=== PATIENT | female | born 1975 | race Caucasian/White ===

== ENCOUNTER 2016-12-08 11:19 | Emergency (ER) | payer BC ==
[~2016-12-08] VITALS: Ht 165.1 cm; Wt 80.0 kg
[2016-12-08 11:40] VITALS: BP 130/74; PULSE 81; RESP 16; TEMP 97.9; O2SAT 98
[2016-12-08 12:23] LABS: AUTOMATED NEUTROPHIL # 9.1 TH/MM3 (1.8-7.7); BASOPHIL % 0.3 % (0.0-2.0); EOSINOPHIL % 0.1 % (0.0-4.0); HEMO FLAGS DIFF FINAL; LYMPH % 14.2 % (9.0-44.0); LYMPHOCYTE # 1.6 TH/MM3 (1.0-4.8); MEAN CELL VOLUME 89.6 FL (80.0-100.0); MEAN CORPUSCULAR HEMOGLOBIN 30.4 PG (27.0-34.0); MEAN CORPUSCULAR HGB CONC 33.9 % (32.0-36.0); MONO % 6.5 % (0.0-8.0); NEUT % 78.9 % (16.0-70.0); PLATELET COUNT 312 TH/MM3 (150-450); RED BLOOD COUNT 4.46 MIL/MM3 (4.00-5.30); RED CELL DISTRIBUTION WIDTH 12.5 % (11.6-17.2); WHITE BLOOD COUNT 11.6 TH/MM3 (4.0-11.0)
[2016-12-08] MEDS ORDERED: SODIUM CHLOR 0.9% 1000 ML INJ 1,000 ML IV SCH ×2 (12:32→13:42)
--- NOTE | 2016-12-08 12:35 | PD ---
HPI Chief Complaint: GI Complaint Time Seen by Provider: 12:33 Travel History International Travel<30 days: No Contact w/Intl Traveler<30days: No Traveled to known affect area: No History of Present Illness HPI 41-year-old female presents to the emergency department for evaluation of nausea and vomiting for 5 days. The patient states that she is approximately 4 weeks , first day of her last menstrual cycle 10/24/16. States that she was given Phenergan by her PCP Dr. Hurt earlier this week and took it 3 times however the last time she took it she vomited despite taking the medication. States that she's been unable to keep down any food or fluids over the last several days. She denies any abdominal pain, vaginal bleeding, vaginal spotting, vaginal discharge, burning with urination, painful urination, hematuria, fever, chills, cough or cold symptoms. No other complaints. PFSH Past Medical History Medical History: Denies Significant Hx Diminished Hearing: No Tetanus Vaccination: < 5 Years Influenza Vaccination: No ?: LMP: 10/24/16 : 2 Para: 1 Past Surgical History Surgical History: No Previous Surgery Social History Alcohol Use: No Tobacco Use: No Substance Use: No Allergies-Medications (Allergen,Severity, Reaction): Coded Allergies: No Known Allergies (Unverified , 12/08/16) Reported Meds & Prescriptions Reported Meds & Active Scripts Active No Active Prescriptions or Reported Medications Review of Systems Except as stated in HPI: all other systems reviewed are Neg Physical Exam Narrative GENERAL: Well-nourished and well-developed pleasant patient in no acute distress who is nontoxic appearing. SKIN: Warm and dry. HEAD: Normocephalic and atraumatic. EYES: No injection, drainage, or hyphema noted. PERRLA. EOMI. ENT: No nasal drainage noted. Oropharynx is clear. NECK: Supple and the trachea is midline. CARDIOVASCULAR: Regular rate and rhythm. RESPIRATORY: Breath sounds are equal bilaterally with no accessory muscle use, wheezing, rhonchi, or crackles. GASTROINTESTINAL: Abdomen is soft, non-tender, and nondistended. MUSCULOSKELETAL: No obvious deformities, swelling, cyanosis, or ecchymosis is present throughout the upper and lower extremities. Patient has full range of motion without any signs of neurovascular compromise. NEUROLOGICAL: Awake, alert, and oriented. Normal speech and gait. Cranial nerves are grossly intact. Data Data Last Documented VS Vital Signs Date Time Temp Pulse Resp B/P Pulse Ox O2 Delivery O2 Flow Rate FiO2 12/08/16 15:41 85 16 105/57 98 Room Air 12/08/16 11:40 97.9 Orders Complete Blood Count With Diff (12/08/16 11:42) Basic Metabolic Panel (Bmp) (12/08/16 11:42) Urinalysis - C+S If Indicated (12/08/16 11:42) Ed Urine Pregnancytest Poc (12/08/16 11:42) Hepatic Functional Panel (12/08/16 12:18) Lipase (12/08/16 12:18) Ondansetron Inj (Zofran Inj) (12/08/16 12:45) Sodium Chlor 0.9% 1000 Ml Inj (Ns 1000 M (12/08/16 12:32) Sodium Chloride 0.9% Flush (Ns Flush) (12/08/16 12:45) Beta Hcg (Quant/Titer) (12/08/16 12:35) Urine Culture (12/08/16 13:42) Sodium Chlor 0.9% 1000 Ml Inj (Ns 1000 M (12/08/16 13:42) Potassium Chloride Eff (K-Lyte Cl Eff) (12/08/16 13:45) Ondansetron Inj (Zofran Inj) (12/08/16 14:15) Metoclopramide Inj (Reglan Inj) (12/08/16 15:45) Labs Laboratory Tests Test 12/08/16 11:50 White Blood Count 11.6 TH/MM3 Red Blood Count 4.46 MIL/MM3 Hemoglobin 13.5 GM/DL Hematocrit 40.0 % Mean Corpuscular Volume 89.6 FL Mean Corpuscular Hemoglobin 30.4 PG Mean Corpuscular Hemoglobin 33.9 % Concent Red Cell Distribution Width 12.5 % Platelet Count 312 TH/MM3 Mean Platelet Volume 7.9 FL Neutrophils (%) (Auto) 78.9 % Lymphocytes (%) (Auto) 14.2 % Monocytes (%) (Auto) 6.5 % Eosinophils (%) (Auto) 0.1 % Basophils (%) (Auto) 0.3 % Neutrophils # (Auto) 9.1 TH/MM3 Lymphocytes # (Auto) 1.6 TH/MM3 Monocytes # (Auto) 0.8 TH/MM3 Eosinophils # (Auto) 0.0 TH/MM3 Basophils # (Auto) 0.0 TH/MM3 CBC Comment DIFF FINAL Differential Comment Urine Color YELLOW Urine Turbidity HAZY Urine pH 6.0 Urine Specific [place] 1.030 Urine Protein 30 mg/dL Urine Glucose (UA) NEG mg/dL Urine Ketones 150 mg/dL Urine Occult Blood NEG Urine Nitrite NEG Urine Bilirubin SMALL Urine Urobilinogen 4.0 MG/DL Urine Leukocyte Esterase NEG Urine RBC 1 /hpf Urine WBC 6 /hpf Urine Squamous Epithelial 4 /hpf Cells Urine Transitional Epithelial <1 /hpf Cells Urine Bacteria FEW /hpf Urine Hyaline Casts 5 /lpf Urine Mucus MANY /lpf Microscopic Urinalysis Comment CULT NOT INDICATED Sodium Level 134 MEQ/L Potassium Level 3.4 MEQ/L Chloride Level 101 MEQ/L Carbon Dioxide Level 19.6 MEQ/L Anion Gap 13 MEQ/L Blood Urea Nitrogen 14 MG/DL Creatinine 0.77 MG/DL Estimat Glomerular Filtration 82 ML/MIN Rate Random Glucose 78 MG/DL Calcium Level 8.9 MG/DL Total Bilirubin 0.8 MG/DL Direct Bilirubin 0.2 MG/DL Indirect Bilirubin 0.6 MG/DL Aspartate Amino Transf 26 U/L (AST/SGOT) Alanine Aminotransferase 33 U/L (ALT/SGPT) Alkaline Phosphatase 66 U/L Total Protein 8.5 GM/DL Albumin 4.4 GM/DL Lipase 206 U/L Human Chorionic Gonadotropin, 79415 MIU/ML Quant MDM Medical Decision Making Medical Screen Exam Complete: Yes Emergency Medical Condition: Yes Differential Diagnosis Dehydration versus electrolyte abnormality versus UTI versus early Narrative Course 41-year-old female presents to the emergency department for evaluation of nausea and vomiting for 5 days in early . Patient is afebrile, vital signs are stable. Physical examination is unremarkable. Abdominal examination is benign. IV access was obtained, labs are drawn and sent. Patient is placed on cardiac telemetry and pulse oximetry monitoring. Patient is administered IV fluids and Zofran. CBC shows slightly elevated white blood cell count of 11.6, otherwise unremarkable. CMP shows sodium 134 and mild hypokalemia 3.4 Beta hcg shows 51,322. Urinalysis shows 30 protein, 150 ketones, small bilirubin, 4.0 urobilinogen, 6 white blood cells, few bacteria, many mucus. Patient has her in stable while here in the emergency department. She has not had any episodes of emesis. She has had some nausea and therefore was given a dose of Reglan. She has some bacteria in her urine and will be discharged with Macrobid. She'll be discharged with Reglan for nausea and vomiting. Discussed with the patient that should she develop any worsening of symptoms or if she is vomiting despite taking antiemetics that she should return immediately to the emergency department. Patient verbalizes understanding and agreement with treatment plan. I discussed the case with my attending physician Dr. Jarvis who is aware of the patients history, physical examination findings, and treatment plan. Diagnosis Primary Impression: Nausea and vomiting during Additional Impressions: Bacteria in urine Mild dehydration Referrals: Manufacturing Design Engineer Patient Instructions: General Instructions, Nausea and Vomiting in ( ED) Additional Instructions: Take medications as prescribed. Follow-up with an OBGYN. Return to the ED for any acute worsening of symptoms. Med/Other Pt SpecificInfo: Prescription(s) given Scripts Metoclopramide (Reglan)10 Mg Tab10 Mg PO TIDAC 7 Days Ref 0 Prov:Wanda Jarvis DO 12/08/16 Disposition: 01 DISCHARGE HOME Condition: Stable Anju Logan Dec 08, 2016 12:34
[2016-12-08 12:44] LABS: BICARBONATE 19.6 MEQ/L (21.0-32.0); POTASSIUM 3.4 MEQ/L (3.5-5.1)
[2016-12-08 12:45] LABS: INDIRECT BILIRUBIN 0.6 MG/DL (0.0-0.8); TOTAL BILIRUBIN ADULT 0.8 MG/DL (0.2-1.0)
[2016-12-08] MEDS ORDERED: SODIUM CHLORIDE 0.9% FLUSH 10 ML FLUSH IV FLUSH PRN (12:45)
[2016-12-08] MEDS ORDERED: ONDANSETRON HCL 4 MG/2 ML VIAL IVP ONE (12:45)
[2016-12-08 12:50] LABS: BACTERIA, URINE FEW /hpf; BLOOD, URINE NEG (NEG); COMMENT (UR) CULT NOT INDICATED; CULTURE IF INDICATED CULT NOT INDICATED; GLUCOSE,URINE NEG (NEG); HYALINE CAST, URINE 5 /lpf (RARE); KETONE, URINE 150 mg/dL (NEG); MUCUS URINE MANY /lpf (OCC); NITRITE,URINE NEG (NEG); SQUAMOUS EPITHELIAL CELL URINE 4 /hpf (0-5); TRANSITIONAL EPI CELLS, URINE <1 /hpf; URINE COLOR YELLOW (YELLW/STRAW)
[2016-12-08 13:06] LABS: BETA HCG QUANT 51322 MIU/ML (0-5)
[2016-12-08] MEDS ORDERED: POTASSIUM CHLORIDE 25 MEQ EFFERVESCENT TAB PO ONE (13:45)
[2016-12-08] MEDS ORDERED: ONDANSETRON HCL 4 MG/2 ML VIAL IV PUSH ONE (14:15)
[2016-12-08 15:41] VITALS: BP 105/57; PULSE 85; RESP 16; O2SAT 98
[2016-12-08] MEDS ORDERED: METOCLOPRAMIDE HCL 10 MG/2 ML VIAL IV PUSH ONE (15:45)
[2016-12-08] MEDS ORDERED: REGL10TA5 PO (16:00)
[2016-12-08] MEDS ORDERED: MACR100C2 PO (16:06)
== END 2016-12-08 16:33 | disposition home or self-care (01) ==
LOC: NEPD 11:19
DX: O21.9 Vomiting of pregnancy, unspecified (principal); Z3A.01 Less than 8 weeks gestation of pregnancy; E86.0 Dehydration; R82.71 Bacteriuria
CPT/HCPCS: 80048; 80076; 81001; 83690; 84702; 84703; 85025; 87086; 96361; 96374; 96375; 99284; J2405; J2765; J7030

== ENCOUNTER 2016-12-10 12:42 | Emergency (ER) | payer BC ==
[~2016-12-10] VITALS: Ht 165.1 cm; Wt 80.0 kg
[~2016-12-10 12:42] MED LIST: MACR100C2 PO; REGL10TA5 PO
[2016-12-10 12:44] VITALS: BP 130/79; PULSE 98; RESP 20; TEMP 98.6; O2SAT 98
--- NOTE | 2016-12-10 12:49 | PD ---
Physical Exam Time Seen by Provider: 12:47 Narrative 41 y/o female 7 weeks gestational age here for evaluation of persistent n/v. Seen 2 days ago for similar complaint, symptoms persistent. Given reglan with no improvement. Vital signs reviewed. Seen at triage desk. Awaiting bed placement. Data Data Last Documented VS Vital Signs Date Time Temp Pulse Resp B/P Pulse Ox O2 Delivery O2 Flow Rate FiO2 12/10/16 12:44 98.6 98 20 130/79 98 Room Air [facility] Medical Record Reviewed: Yes Supervised Visit with ANH: Gee Hernandez Dec 10, 2016 12:49
[2016-12-10] MEDS ORDERED: SODIUM CHLOR 0.9% 1000 ML INJ 1,000 ML IV SCH (13:41)
[2016-12-10] MEDS ORDERED: ONDANSETRON HCL 4 MG/2 ML VIAL IVP ONE (13:45)
[2016-12-10] MEDS ORDERED: SODIUM CHLOR 0.9% 1000 ML INJ 1,000 ML IV ONE (13:45)
[2016-12-10] MEDS ORDERED: DOXY10TA PO (14:08)
[2016-12-10] MEDS ORDERED: PROM1SUP8 RECTAL (14:08)
--- NOTE | 2016-12-10 14:09 | PD ---
HPI Chief Complaint: Related Problem Time Seen by Provider: 13:27 Travel History International Travel<30 days: No Contact w/Intl Traveler<30days: No Traveled to known affect area: No History of Present Illness HPI Patient is a 41-year-old female who presents to emergency room complaints of nausea with . Patient reports that she is about 7 weeks with her second child, reports that her , she has been feeling nauseous. Reports that she is very sensitive to smells, patient reports that she is unable to keep any foods or fluids down. Reports that she was seen in the ER a few days ago and was given a scrip for reglan which has not helped with her symptoms. Reports that she has also tried taking phenergen with no relief of symptoms. Patient denies abdominal pain/cramping. Denies vaginal discharge/ bleeding. PFSH Past Medical History Medical History: Denies Significant Hx Diminished Hearing: No ?: : 2 Para: 1 Past Surgical History Surgical History: No Previous Surgery Social History Alcohol Use: No Tobacco Use: No Substance Use: No Allergies-Medications (Allergen,Severity, Reaction): Coded Allergies: No Known Allergies (Unverified , 12/10/16) Reported Meds & Prescriptions Reported Meds & Active Scripts Active Phenergan Supp (Promethazine HCl) 50 Mg Supp 50 Mg RECTAL Q6H PRN Diclegis (Doxylamine-Pyridoxine) 10-10 Mg Tab 10 Mg PO BID PRN Macrobid (Nitrofurantoin Monoh/Nitrofur Macro) 100 Mg Cap 100 Mg PO BID 10 Days Reglan (Metoclopramide HCl) 10 Mg Tab 10 Mg PO TIDAC 7 Days Review of Systems General / Constitutional: No: Fever Eyes: No: Visual changes HENT: No: Headaches Cardiovascular: No: Chest Pain or Discomfort Respiratory: No: Shortness of Breath Gastrointestinal: Positive: Nausea, Vomiting, No: Abdominal Pain Genitourinary: No: Urgency, Frequency, Dysuria Musculoskeletal: No: Pain Skin: No Rash Neurologic: No: Weakness Psychiatric: No: Depression Endocrine: No: Polydipsia Hematologic/Lymphatic: No: Easy Bruising Physical Exam Narrative GENERAL: Mild distress SKIN: Focused skin assessment warm/dry. HEAD: Atraumatic. Normocephalic. EYES: Pupils equal and round. No scleral icterus. No injection or drainage. ENT: No nasal bleeding or discharge. Mucous membranes pink and moist. NECK: Trachea midline. No JVD. CARDIOVASCULAR: Regular rate and rhythm. No murmur appreciated. RESPIRATORY: No accessory muscle use. Clear to auscultation. Breath sounds equal bilaterally. GASTROINTESTINAL: Abdomen soft, non-tender, nondistended. Hepatic and splenic margins not palpable. MUSCULOSKELETAL: No obvious deformities. No clubbing. No cyanosis. No edema. NEUROLOGICAL: Awake and alert. No obvious cranial nerve deficits. Motor grossly within normal limits. Normal speech. PSYCHIATRIC: Appropriate mood and affect; insight and judgment normal. Data Data Last Documented VS Vital Signs Date Time Temp Pulse Resp B/P Pulse Ox O2 Delivery O2 Flow Rate FiO2 12/10/16 12:44 98.6 98 20 130/79 98 Room Air Orders Basic Metabolic Panel (Bmp) (12/10/16 13:41) Urinalysis - C+S If Indicated (12/10/16 13:41) Iv Access Insert/Monitor (12/10/16 13:41) Ondansetron Inj (Zofran Inj) (12/10/16 13:45) Sodium Chlor 0.9% 1000 Ml Inj (Ns 1000 M (12/10/16 13:41) Sodium Chloride 0.9% Flush (Ns Flush) (12/10/16 13:45) Sodium Chlor 0.9% 1000 Ml Inj (Ns 1000 M (12/10/16 13:45) Ondansetron Inj (Zofran Inj) (12/10/16 15:45) Promethazine Supp (Phenergan Supp) (12/10/16 15:45) Labs Laboratory Tests Test 12/10/16 12/10/16 14:00 15:40 Sodium Level 136 MEQ/L Potassium Level 3.6 MEQ/L Chloride Level 103 MEQ/L Carbon Dioxide Level 20.3 MEQ/L Anion Gap 13 MEQ/L Blood Urea Nitrogen 6 MG/DL Creatinine 0.68 MG/DL Estimat Glomerular Filtration 95 ML/MIN Rate Random Glucose 71 MG/DL Calcium Level 9.1 MG/DL Urine Color DARK-YELLOW Urine Turbidity HAZY Urine pH 6.0 Urine Specific [place] 1.023 Urine Protein 30 mg/dL Urine Glucose (UA) NEG mg/dL Urine Ketones 150 mg/dL Urine Occult Blood NEG Urine Nitrite NEG Urine Bilirubin NEG Urine Urobilinogen 2.0 MG/DL Urine Leukocyte Esterase MOD Urine RBC 1 /hpf Urine WBC 7 /hpf Urine Squamous Epithelial 16 /hpf Cells Urine Bacteria FEW /hpf Urine Hyaline Casts 1 /lpf Urine Mucus FEW /lpf Microscopic Urinalysis Comment CULT NOT INDICATED MDM Medical Decision Making Medical Screen Exam Complete: Yes Emergency Medical Condition: Yes Interpretation(s) Vital Signs Date Time Temp Pulse Resp B/P Pulse Ox O2 Delivery O2 Flow Rate FiO2 12/10/16 12:44 98.6 98 20 130/79 98 Room Air Differential Diagnosis Differential includes nausea and vomiting with , electrolyte abnormality, dehydration Narrative Course 41-year-old female who presents to emergency room with complaints of nausea vomiting during . Reports that this is her second , reports that she has had issues with nausea and vomiting during her first . Patient has tried phenergen and reglan with no relief of symptoms. Patient here for iv hydration and for antiemetics. She does have an appointment with Dr. Sommers in the upcoming weeks. Vital Signs Date Time Temp Pulse Resp B/P Pulse Ox O2 Delivery O2 Flow Rate FiO2 12/10/16 12:44 98.6 98 20 130/79 98 Room Air Laboratory Tests Test 12/10/16 14:00 Sodium Level 136 MEQ/L (136-145) Potassium Level 3.6 MEQ/L (3.5-5.1) Chloride Level 103 MEQ/L (98-107) Carbon Dioxide Level 20.3 MEQ/L (21.0-32.0) Anion Gap 13 MEQ/L (5-15) Blood Urea Nitrogen 6 MG/DL (7-18) Creatinine 0.68 MG/DL (0.50-1.00) Estimat Glomerular Filtration 95 ML/MIN (>89) Rate Random Glucose 71 MG/DL (74-106) Calcium Level 9.1 MG/DL (8.5-10.1) Patient feeling much better at this time. Labs reviewed - UA pending Diagnosis Primary Impression: Nausea and vomiting during Patient Instructions: General Instructions Additional Instructions: Please follow up with your tire builder operator as soon as possible Return to ER as needed Med/Other Pt SpecificInfo: Prescription(s) given Scripts Ondansetron (Zofran)4 Mg Tab4 Mg PO Q6HR PRN (NAUSEA OR VOMITING) #20 TAB Ref 0 Prov:Wanda Jarvis DO 12/10/16 Promethazine Supp (Phenergan Supp)50 Mg Supp50 Mg RECTAL Q6H PRN (NAUSEA OR VOMITING) #30 SUPP Ref 0 Prov:Wanda Jarvis DO 12/10/16 Doxylamine-Pyridoxine (Diclegis)10-10 Mg Tab10 Mg PO BID PRN (NAUSEA) #60 Prov:Wanda Jarvis DO 12/10/16 Disposition: 01 DISCHARGE HOME Condition: Stable Wanda Jarvis DO Dec 10, 2016 14:09
[2016-12-10] MEDS: SODIUM CHLORIDE 0.9% FLUSH 10 ML FLUSH IV FLUSH PRN ×3 (15:00→16:17)
[2016-12-10 15:09] LABS: BICARBONATE 20.3 MEQ/L (21.0-32.0)
[2016-12-10 15:10] LABS: POTASSIUM 3.6 MEQ/L (3.5-5.1)
[2016-12-10] MEDS ORDERED: ONDANSETRON HCL 4 MG/2 ML VIAL IV PUSH ONE (15:45)
[2016-12-10] MEDS ORDERED: PROMETHAZINE HCL 25 MG SUPP RECTAL ONE (15:45)
[2016-12-10 16:10] LABS: BACTERIA, URINE FEW /hpf; BLOOD, URINE NEG (NEG); COMMENT (UR) CULT NOT INDICATED; CULTURE IF INDICATED CULT NOT INDICATED; GLUCOSE,URINE NEG (NEG); HYALINE CAST, URINE 1 /lpf (RARE); KETONE, URINE 150 mg/dL (NEG); MUCUS URINE FEW /lpf (OCC); NITRITE,URINE NEG (NEG); SQUAMOUS EPITHELIAL CELL URINE 16 /hpf (0-5); URINE COLOR DARK-YELLOW (YELLW/STRAW)
[2016-12-10] MEDS ORDERED: ZOFR4TAB PO (16:30)
== END 2016-12-10 17:03 | disposition home or self-care (01) ==
LOC: NEPD 12:42
DX: O21.9 Vomiting of pregnancy, unspecified (principal); Z79.899 Other long term (current) drug therapy
CPT/HCPCS: 80048; 81001; 96361; 96374; 96376; 99284; J2405; J7030

== ENCOUNTER 2016-12-17 15:03 | Observation (INO) | payer BC ==
[~2016-12-17] VITALS: Ht 165.1 cm; Wt 75.2 kg
[~2016-12-17 15:03] MED LIST changes: +DOXY10TA PO; +PROM1SUP8 RECTAL; +ZOFR4TAB PO
[2016-12-17 15:11] VITALS: BP 138/84; PULSE 85; RESP 16; TEMP 98.2; O2SAT 99
--- NOTE | 2016-12-17 17:42 | PD ---
HPI Chief Complaint: GI Complaint Time Seen by Provider: 17:37 Travel History International Travel<30 days: No Contact w/Intl Traveler<30days: No Traveled to known affect area: No History of Present Illness HPI PATIENT IS 8 WEEKS , PATIENT HAS BEEN HERE ON December AND TODAY FOR SAME COMPLAINT...PREVIOUSLY BMP WAS WNL, BUT NO LFT'S , UA NOTED SOME MILD UTI VS STERILE PYURIA GIVEN MACROBID, PATIENT HAS BEEN PLACED ON REGLAN AND PHENERGAN PREVIOUSLY AND FINALLY LAST VISIT GIVEN ZOFRAN...NOW PATIENT RETURNS C /O "DEHYDRATED FROM ALL THE VOMITING" [facility] Past Medical History Diminished Hearing: No Influenza Vaccination: Yes ?: LMP: 8 WEEKS : 2 Para: 1 Past Surgical History Surgical History: No Previous Surgery Family History Family Hypercholesterolemia: Yes Social History Alcohol Use: No Tobacco Use: No Substance Use: No Allergies-Medications (Allergen,Severity, Reaction): Coded Allergies: No Known Allergies (Unverified , 12/17/16) Reported Meds & Prescriptions Reported Meds & Active Scripts Active Review of Systems Except as stated in HPI: all other systems reviewed are Neg Gastrointestinal: Positive: Nausea, Vomiting Physical Exam Narrative GENERAL: SKIN: Warm and dry. HEAD: Atraumatic. Normocephalic. EYES: Pupils equal and round. No scleral icterus. No injection or drainage. ENT: No nasal bleeding or discharge. Mucous membranes pink and moist. NECK: Trachea midline. No JVD. CARDIOVASCULAR: Regular rate and rhythm. RESPIRATORY: No accessory muscle use. Clear to auscultation. Breath sounds equal bilaterally. GASTROINTESTINAL: Abdomen soft, non-tender, nondistended. Hepatic and splenic margins not palpable. MUSCULOSKELETAL: Extremities without clubbing, cyanosis, or edema. No obvious deformities. NEUROLOGICAL: Awake and alert. No obvious cranial nerve deficits. Motor grossly within normal limits. Five out of 5 muscle strength in the arms and legs. Normal speech. PSYCHIATRIC: Appropriate mood and affect; insight and judgment normal. Data Data Last Documented VS Vital Signs Date Time Temp Pulse Resp B/P Pulse Ox O2 Delivery O2 Flow Rate FiO2 12/17/16 15:11 98.2 85 16 138/84 99 Orders Complete Blood Count With Diff (12/17/16 17:42) Comprehensive Metabolic Panel (12/17/16 17:42) Lipase (12/17/16 17:42) Beta Hcg (Quant/Titer) (12/17/16 17:42) Iv Access Insert/Monitor (12/17/16 17:42) Sodium Chlor 0.9% 1000 Ml Inj (Ns 1000 M (12/17/16 17:45) Ondansetron Inj (Zofran Inj) (12/17/16 17:45) Promethazine Inj (Phenergan Inj) (12/17/16 18:00) Admit Order (Ed Use Only) (12/17/16 19:11) Labs Laboratory Tests Test 12/17/16 18:15 White Blood Count 10.3 TH/MM3 Red Blood Count 4.49 MIL/MM3 Hemoglobin 14.1 GM/DL Hematocrit 39.8 % Mean Corpuscular Volume 88.7 FL Mean Corpuscular Hemoglobin 31.4 PG Mean Corpuscular Hemoglobin 35.5 % Concent Red Cell Distribution Width 12.2 % Platelet Count 272 TH/MM3 Mean Platelet Volume 9.0 FL Neutrophils (%) (Auto) 75.6 % Lymphocytes (%) (Auto) 16.8 % Monocytes (%) (Auto) 6.9 % Eosinophils (%) (Auto) 0.0 % Basophils (%) (Auto) 0.7 % Neutrophils # (Auto) 7.8 TH/MM3 Lymphocytes # (Auto) 1.7 TH/MM3 Monocytes # (Auto) 0.7 TH/MM3 Eosinophils # (Auto) 0.0 TH/MM3 Basophils # (Auto) 0.1 TH/MM3 CBC Comment DIFF FINAL Differential Comment Sodium Level 134 MEQ/L Potassium Level 2.8 MEQ/L Chloride Level 97 MEQ/L Carbon Dioxide Level 25.2 MEQ/L Anion Gap 12 MEQ/L Blood Urea Nitrogen 10 MG/DL Creatinine 0.73 MG/DL Estimat Glomerular Filtration 87 ML/MIN Rate Random Glucose 85 MG/DL Calcium Level 9.2 MG/DL Total Bilirubin 0.7 MG/DL Aspartate Amino Transf 34 U/L (AST/SGOT) Alanine Aminotransferase 48 U/L (ALT/SGPT) Alkaline Phosphatase 59 U/L Total Protein 8.2 GM/DL Albumin 4.0 GM/DL Lipase 273 U/L Human Chorionic Gonadotropin, [id number] MIU/ML Quant MDM Medical Decision Making Medical Screen Exam Complete: Yes Emergency Medical Condition: Yes Medical Record Reviewed: Yes Differential Diagnosis HYPEREMESIS GRAVIDARUM V HELLP V DEHYDRATION V ELECTROLYTE ABNL Narrative Course PATIENT EVLAUATED AND WITHOUT ANEMIA OR LEUKOCYTOSIS, HOWEVER, FOUND TO BE DEHYDRATED AND HYPOKALEMIC FOR WHICH WILL BE ADMITTED OBS UNDER DR CANO. Diagnosis Primary Impression: HYPEREMESIS GRAVIDARUM Additional Impressions: ACUTE HYPOKALEMIA DEHYDRATION Admitting Information Admitting Physician Requests: Observation Samy Ferraro MD Dec 17, 2016 17:42
[2016-12-17] MEDS ORDERED: ONDANSETRON HCL 4 MG/2 ML VIAL IV PUSH ONE (17:45)
[2016-12-17] MEDS ORDERED: SODIUM CHLOR 0.9% 1000 ML INJ 1,000 ML IV ONE (17:45)
[2016-12-17] MEDS ORDERED: PROMETHAZINE INJ 25 MG/ML VIAL IM ONE (18:00)
[2016-12-17 18:53] LABS: AUTOMATED NEUTROPHIL # 7.8 TH/MM3 (1.8-7.7); BASOPHIL # 0.1 TH/MM3 (0-0.2); BASOPHIL % 0.7 % (0.0-2.0); HEMATOCRIT 39.8 % (35.0-46.0); HEMO FLAGS DIFF FINAL; LYMPH % 16.8 % (9.0-44.0); LYMPHOCYTE # 1.7 TH/MM3 (1.0-4.8); MEAN CELL VOLUME 88.7 FL (80.0-100.0); MEAN CORPUSCULAR HEMOGLOBIN 31.4 PG (27.0-34.0); MEAN CORPUSCULAR HGB CONC 35.5 % (32.0-36.0); MONO % 6.9 % (0.0-8.0); NEUT % 75.6 % (16.0-70.0); PLATELET COUNT 272 TH/MM3 (150-450); RED BLOOD COUNT 4.49 MIL/MM3 (4.00-5.30); RED CELL DISTRIBUTION WIDTH 12.2 % (11.6-17.2); WHITE BLOOD COUNT 10.3 TH/MM3 (4.0-11.0)
[2016-12-17 19:20] LABS: ALKALINE PHOSPHATASE 59 U/L (45-117); ALT (GPT) 48 U/L (10-53); ANION GAP 12 MEQ/L (5-15); AST (GOT) 34 U/L (15-37); BICARBONATE 25.2 MEQ/L (21.0-32.0); BLOOD UREA NITROGEN 10 MG/DL (7-18); CHLORIDE 97 MEQ/L (98-107); GLOMERULAR FILTRATION RATE 87 ML/MIN (>89); SODIUM (NA) 134 MEQ/L (136-145); TOTAL BILIRUBIN ADULT 0.7 MG/DL (0.2-1.0)
[2016-12-17 19:26] LABS: POTASSIUM 2.8 MEQ/L (3.5-5.1)
[2016-12-17 19:40] LABS: BETA HCG QUANT 136591 MIU/ML (0-5)
[2016-12-17 19:44] VITALS: BP 112/71; PULSE 84; RESP 16; TEMP 98.5; O2SAT 99
[2016-12-17] MEDS ORDERED: POTASSIUM CHLOR 20 MEQ PREMIX 100 ML IV ONE (19:45)
[2016-12-17] MEDS ORDERED: PROMETHAZINE INJ 25 MG/ML VIAL IM PRN (23:15)
[2016-12-17] MEDS ORDERED: ONDANSETRON HCL 4 MG/2 ML VIAL IV PUSH PRN (23:15)
[2016-12-17] MEDS ORDERED: PROMETHAZINE HCL 25 MG SUPP RECTAL PRN (23:15)
[2016-12-17] MEDS: LACTATED RINGER'S 1000 ML INJ 1,000 ML IV SCH (23:15)
[2016-12-17] MEDS: ZOLPIDEM TARTRATE 5 MG TAB PO SCH (23:16)
[2016-12-17] MEDS: POTASSIUM CHLOR 10 MEQ PREMIX 100 ML IV SCH (23:43)
[2016-12-18] MEDS: POTASSIUM CHLOR 10 MEQ PREMIX 100 ML IV SCH ×2 (00:53→01:56)
--- NOTE | 2016-12-18 08:27 | HHI.PR ---
Subjective Remarks Feeling better this morning no nausea at the present time but I have had nothing to eat or drink. Not really hungry at the present time. Objective Vital Signs Date Time Temp Pulse Resp B/P Pulse Ox O2 Delivery O2 Flow Rate FiO2 12/17/16 19:44 98.5 84 16 112/71 99 Room Air 12/17/16 15:11 98.2 85 16 138/84 99 Result Diagram: 12/17/16181412/17/161814 Other Results Mucous membranes are dry Chest is clear Heart has regular rate and rhythm Abdomen is soft and nontender Extremities no clubbing cyanosis or edema. Skin turgor is poor Assessment and Plan Assessment and Plan Intrauterine at 8 weeks Severe nausea and vomiting of .. Plan to give her a fluid bolus at this time and IV Zofran and then I would start Zofran [id number] and uses Phenergan suppositories as needed. I want to make sure when she leaves the hospital she does not return. She may need a PICC line with IV fluids at home but first I will try to control her nausea and vomiting with oral medicines and rectal meds as needed. Hypokalemia she had many runs of serum last night as well as lactated Ringer's running all night. I will check her blood work now Homero Sommers MD Dec 18, 2016 08:27
[2016-12-18] MEDS: ONDANSETRON ODT 4 MG TAB PO SCH ×3 (08:30→19:35)
[2016-12-18] MEDS ORDERED: LACTATED RINGER'S 1000 ML INJ 1,000 ML IV ONE (08:30)
[2016-12-18] MEDS ORDERED: ONDANSETRON HCL 4 MG/2 ML VIAL IV PUSH ONE (08:30)
[2016-12-18] MEDS: LACTATED RINGER'S 1000 ML INJ 1,000 ML IV SCH ×2 (08:43→19:35)
[2016-12-18 09:41] LABS: AUTOMATED NEUTROPHIL # 4.8 TH/MM3 (1.8-7.7); BASOPHIL % 0.3 % (0.0-2.0); EOSINOPHIL % 0.5 % (0.0-4.0); HEMO FLAGS DIFF FINAL; LYMPH % 24.9 % (9.0-44.0); LYMPHOCYTE # 1.8 TH/MM3 (1.0-4.8); MEAN CELL VOLUME 89.7 FL (80.0-100.0); MEAN CORPUSCULAR HEMOGLOBIN 31.7 PG (27.0-34.0); MEAN CORPUSCULAR HGB CONC 35.3 % (32.0-36.0); MONO % 8.3 % (0.0-8.0); PLATELET COUNT 182 TH/MM3 (150-450); RED BLOOD COUNT 3.35 MIL/MM3 (4.00-5.30); RED CELL DISTRIBUTION WIDTH 12.5 % (11.6-17.2); WHITE BLOOD COUNT 7.3 TH/MM3 (4.0-11.0)
[2016-12-18 09:49] LABS: ANION GAP 9 MEQ/L (5-15); AST (GOT) 34 U/L (15-37); BICARBONATE 24.1 MEQ/L (21.0-32.0); BLOOD UREA NITROGEN 6 MG/DL (7-18); CHLORIDE 105 MEQ/L (98-107); GLOMERULAR FILTRATION RATE 138 ML/MIN (>89); POTASSIUM 3.3 MEQ/L (3.5-5.1); SODIUM (NA) 138 MEQ/L (136-145)
[2016-12-18 09:50] LABS: ALT (GPT) 38 U/L (10-53)
[2016-12-18 09:52] LABS: ALKALINE PHOSPHATASE 41 U/L (45-117); TOTAL BILIRUBIN ADULT 0.6 MG/DL (0.2-1.0)
--- NOTE | 2016-12-18 13:29 | MH ---
cc: Homero CANO DATE OF ADMISSION 12/17/2016 HISTORY OF PRESENT ILLNESS Miss Aguilar is a 41-year-old female para 1-0-0-1 who presents with nausea and vomiting. She has been in the emergency room three times this week and has been sent home with continuing nausea and vomiting. She was vomiting so much her stomach and back are starting to hurt. She feels terrible. Her potassium was found to be 2.8 and she is being admitted to the hospital for IV hydration, antiemetic therapy and to try to control this with p.o. medicines. She may need a PICC line. PAST OB HISTORY She is para 1-0-0-1. She had an . PAST CHANNELER OUTSOLE HISTORY Remarkable for HSV, PMS and precancer of the cervix. PAST SURGICAL HISTORY Negative PAST MEDICAL HISTORY Remarkable for hypothyroidism. FAMILY HISTORY Heart disease in her maternal grandmother, high blood pressure in her mother, high cholesterol in her mother, depression in her mother. SOCIAL HISTORY She is . She has never smoked. She used alcohol socially before , none during and she works at the [employer]. ALLERGIES No known drug allergies. MEDICATIONS Her medications are: 1. Zofran and Phenergan at home which is not helping. 2. She has also tried Diclegis. REVIEW OF SYSTEMS She denies any headaches, scotoma, no shortness of breath. No chest pressure. No chest pain. She is having some abdominal cramping due to the constant vomiting. She denies any vaginal bleeding, problems with bowel function or bladder function. PHYSICAL EXAM Her physical exam reveals a well-developed, well-nourished female. She looks dry. She seems like she does not feel well. VITAL SIGNS: Her temperature is 98.5, pulse is 84, her respirations are 16. Her blood pressure is 112/71, pulse ox is 99. HEENT: Normocephalic, atraumatic. NECK: Supple. Trachea is in the midline. No thyromegaly or adenopathy. CHEST: Clear to auscultation. HEART: The heart has a regular rate and rhythm without murmur. ABDOMEN: The abdomen is soft, slightly tender suprapubically. EXTREMITIES: The Extremities have no clubbing, cyanosis, edema. LABORATORY DATA Her laboratory workup reveals a white count of 10, hemoglobin is 14.1, her hematocrit is 39. Her platelets are 272. Her potassium is 2.8. This morning the recheck was 3.3. Her LFTs are normal. ASSESSMENT/PLAN 1. Intrauterine approximately eight weeks. She has had an ultrasound in the office. We did not measure the crown-rump length, but she is about eight weeks . She does not have a molar . 2. Extreme nausea and vomiting of . We are going to put her in the hospital for a couple of days. We are going to give her IV hydration and IV antiemetics. After a while, we will go ahead and try to change her to p.o. while keeping the IV running and see if we can get her to eat a Brat diet. Hopefully we will be able to get her stabilized and she will be able to go home. If she cannot tolerate eating without an IV, we may have to put a PICC line in and give her IV therapy at home. R. MD ROBERTO Monteiro/ALEXX /1:10 PM /1:20 PM
[2016-12-18] MEDS: ZOLPIDEM TARTRATE 5 MG TAB PO SCH (21:09)
[2016-12-19] MEDS: ONDANSETRON ODT 4 MG TAB PO SCH ×3 (01:13→12:09)
[2016-12-19] MEDS: LACTATED RINGER'S 1000 ML INJ 1,000 ML IV SCH (03:21)
[2016-12-19] MEDS ORDERED: ONDA4TAB7 PO (13:29)
--- NOTE | 2016-12-19 13:35 | HHI.DCPOC ---
Discharge Care Plan Diagnosis: (1) Nausea and vomiting during (2) Dehydration, severe (3) Acute hypokalemia Report Symptoms to Your Doctor -Temperature above 100.5 degrees -Redness, of incision or excessive or foul smelling drainage -Unusual pain or calf pain -Increased vaginal bleeding -Painful or difficulty urinating -Feelings of extreme sadness or anxiety after 2 weeks Goals to Promote Your Health * To prevent worsening of your condition and complications * To maintain your health at the optimal level Directions to Meet Your Goals Take your medications as prescribed Follow your dietary instruction Follow activity as directed Ensure plenty of rest for recovery Drink fluids for hydration Keep your appointments as scheduled Take your immunizations and boosters as scheduled If your symptoms worsen call your PCP, if no PCP go to Urgent Care Center or Emergency Room Smoking is Dangerous to Your Health. Avoid second hand smoke Call the 24-hour crisis hotline for domestic abuse at Homero Sommers MD Dec 19, 2016 13:35
== END 2016-12-19 14:06 | disposition home or self-care (01) ==
LOC: NEPD 15:03 → NEDA 19:14 → H2EA 20:32
PROVIDERS: ADMIT Obstetrics & Gynecology; ATTEND Obstetrics & Gynecology
DX: O21.1 Hyperemesis gravidarum with metabolic disturbance (principal); O99.281 Endocrine, nutritional and metabolic diseases complicating pregnancy, first trimester; E03.9 Hypothyroidism, unspecified; Z3A.08 8 weeks gestation of pregnancy
CPT/HCPCS: 80053; 83690; 84702; 85025; 96361; 96372; 96374; 99285; G0378; J2405; J2550; J3480; J7030; J7120

== ENCOUNTER 2017-01-01 13:14 | Inpatient (IN) | payer MEDICAID ==
[~2017-01-01] VITALS: Ht 165.1 cm; Wt 73.5 kg
[~2017-01-01 13:14] MED LIST changes: -DOXY10TA PO; -MACR100C2 PO; +ONDA4TAB7 PO; -PROM1SUP8 RECTAL; -REGL10TA5 PO; -ZOFR4TAB PO
[2017-01-01 15:44] VITALS: BP 107/67; PULSE 71
[2017-01-01 15:46] VITALS: RESP 20; TEMP 97.7
[2017-01-01] MEDS: ONDANSETRON HCL 4 MG/2 ML VIAL IV PUSH SCH ×2 (16:16→22:49)
[2017-01-01] MEDS: METOCLOPRAMIDE HCL 10 MG/2 ML VIAL IV SCH (16:17)
[2017-01-01] MEDS ORDERED: PROMETHAZINE INJ 25 MG/ML VIAL IM PRN (17:00)
[2017-01-01] MEDS ORDERED: PROMETHAZINE HCL 25 MG TAB PO PRN (17:00)
[2017-01-01] MEDS ORDERED: ZOLPIDEM TARTRATE 5 MG TAB PO PRN (17:00)
[2017-01-01] MEDS ORDERED: LACTATED RINGER'S 1000 ML INJ 1,000 ML IV ONE (17:00)
[2017-01-01 17:01] LABS: AUTOMATED NEUTROPHIL # 5.5 TH/MM3 (1.8-7.7); BASOPHIL % 0.3 % (0.0-2.0); EOSINOPHIL % 0.2 % (0.0-4.0); HEMATOCRIT 32.9 % (35.0-46.0); HEMO FLAGS DIFF FINAL; LYMPHOCYTE # 1.6 TH/MM3 (1.0-4.8); MEAN CELL VOLUME 89.5 FL (80.0-100.0); MEAN CORPUSCULAR HEMOGLOBIN 31.3 PG (27.0-34.0); MONO % 8.1 % (0.0-8.0); NEUT % 70.4 % (16.0-70.0); PLATELET COUNT 229 TH/MM3 (150-450); RED BLOOD COUNT 3.68 MIL/MM3 (4.00-5.30); RED CELL DISTRIBUTION WIDTH 12.4 % (11.6-17.2); WHITE BLOOD COUNT 7.8 TH/MM3 (4.0-11.0)
[2017-01-01 17:23] LABS: ALT (GPT) 15 U/L (10-53); ANION GAP 15 MEQ/L (5-15); AST (GOT) 14 U/L (15-37); BICARBONATE 14.7 MEQ/L (21.0-32.0); BLOOD UREA NITROGEN 2 MG/DL (7-18); CHLORIDE 107 MEQ/L (98-107); GLOMERULAR FILTRATION RATE 129 ML/MIN (>89); POTASSIUM 3.6 MEQ/L (3.5-5.1); SODIUM (NA) 137 MEQ/L (136-145)
[2017-01-01 17:26] LABS: ALKALINE PHOSPHATASE 39 U/L (45-117); TOTAL BILIRUBIN ADULT 0.4 MG/DL (0.2-1.0)
[2017-01-01] MEDS: LACTATED RINGER'S 1000 ML INJ 1,000 ML IV SCH ×2 (18:37→22:55)
[2017-01-01 19:36] VITALS: BP 104/71; PULSE 78; RESP 18; TEMP 98.4
[2017-01-01] MEDS: PROMETHAZINE HCL 25 MG SUPP RECTAL PRN (21:12)
[2017-01-01 22:53] VITALS: BP 112/58; PULSE 76
[2017-01-02] MEDS: METOCLOPRAMIDE HCL 10 MG/2 ML VIAL IV SCH ×3 (01:00→17:19)
[2017-01-02] MEDS: ONDANSETRON HCL 4 MG/2 ML VIAL IV PUSH SCH ×4 (05:01→22:42)
[2017-01-02] MEDS: LACTATED RINGER'S 1000 ML INJ 1,000 ML IV SCH ×3 (06:02→19:38)
[2017-01-02 07:35] VITALS: BP 98/59; PULSE 68; RESP 18; TEMP 98.7
--- NOTE | 2017-01-02 14:26 | HHI.PR ---
MEAT TEAM LEAD Note Note a/o heart regular rhythm abd soft nontender, decreased bs lungs clear to auscultation, anterior and posterior bilateral lower extremities without swelling or pain pt having bites of makeda diet nausea has improved at times emesis x 1 pt talked to construction project manager upon admission but is unsure what the suggestions are, there is no note in the chart at this time Kimmie Jones Jan 02, 2017 14:26
[2017-01-02 15:04] VITALS: BP 106/50; PULSE 77
[2017-01-02 19:39] VITALS: BP 112/67; PULSE 70
[2017-01-02 19:40] VITALS: RESP 18; TEMP 99
[2017-01-02 19:49] LABS: BACTERIA, URINE RARE /hpf; BLOOD, URINE NEG (NEG); COMMENT (UR) CULT NOT INDICATED; CULTURE IF INDICATED CULT NOT INDICATED; GLUCOSE,URINE NEG (NEG); HYALINE CAST, URINE 2 /lpf (RARE); KETONE, URINE 150 mg/dL (NEG); MUCUS URINE FEW /lpf (OCC); NITRITE,URINE NEG (NEG); PH, URINE 5.5 (5.0-8.5); SQUAMOUS EPITHELIAL CELL URINE 2 /hpf (0-5); URINE COLOR LIGHT-YELLOW (YELLW/STRAW)
[2017-01-02] MEDS: PROMETHAZINE HCL 25 MG SUPP RECTAL PRN (19:58)
[2017-01-02] MEDS ORDERED: ACETAMINOPHEN 650 MG/20.3 ML UDC PO PRN (20:15)
[2017-01-02] MEDS: ACETAMINOPHEN 650 MG SUPP RECTAL PRN (22:20)
[2017-01-02 22:46] VITALS: BP 111/58; PULSE 77
[2017-01-02 22:47] VITALS: RESP 18; TEMP 99.2
[2017-01-03] VITALS (9 sets, daily range): BP systolic 96–120; BP diastolic 46–70; PULSE 75–83; RESP 18–20; TEMP 97.7–99.3
[2017-01-03] MEDS: METOCLOPRAMIDE HCL 10 MG/2 ML VIAL IV SCH ×3 (00:40→16:59)
[2017-01-03] MEDS: LACTATED RINGER'S 1000 ML INJ 1,000 ML IV SCH ×4 (02:12→21:58)
[2017-01-03] MEDS: ONDANSETRON HCL 4 MG/2 ML VIAL IV PUSH SCH ×4 (04:45→22:08)
--- NOTE | 2017-01-03 15:53 | HHI.PR ---
SALON/SPA MANAGER Note Note pt reports emesis x 3 yesterday with increased nausea between 4-6pm, talking also increases nausea diet has only been several bites of toast and rice throughout the day pt c/o feeling like there are nodules on the back of her tongue(down her throat) that swell during the day and cause her to vomit no bm will call alodize machine helper for report of consult will order ent consult pt needs picc line dressing change continue to encourage small bites regularly throughout the day change status to admission a/o heart rate regular rhythm lungs clear abd soft nontender, decrease bs lower extremities without pain or swelling Kimmie Zuluaga Jan 03, 2017 15:53
[2017-01-03] MEDS ORDERED: DICLEGIS PO SCH (21:00)
[2017-01-03] MEDS ORDERED: [UNRECOGNIZED DRUG - OTHER] PO SCH (21:00)
[2017-01-03] MEDS: PROMETHAZINE HCL 25 MG SUPP RECTAL PRN (21:58)
[2017-01-03] MEDS: [UNRECOGNIZED DRUG - OTHER] PO SCH (22:44)
[2017-01-03] MEDS: DICLEGIS PO SCH (22:44)
[2017-01-04] VITALS (9 sets, daily range): BP systolic 101–117; BP diastolic 53–73; PULSE 71–84; RESP 13–18; TEMP 98.2–99.2
[2017-01-04] MEDS: METOCLOPRAMIDE HCL 10 MG/2 ML VIAL IV SCH ×3 (01:08→17:15)
[2017-01-04] MEDS: LACTATED RINGER'S 1000 ML INJ 1,000 ML IV SCH ×4 (03:03→22:50)
[2017-01-04] MEDS: ONDANSETRON HCL 4 MG/2 ML VIAL IV PUSH SCH ×4 (05:00→22:50)
[2017-01-04] MEDS: PROMETHAZINE HCL 25 MG SUPP RECTAL PRN ×4 (08:18→21:05)
[2017-01-04] MEDS: [UNRECOGNIZED DRUG - OTHER] PO SCH ×3 (08:31→21:00)
[2017-01-04] MEDS: DICLEGIS PO SCH ×3 (08:31→21:00)
[2017-01-04] MEDS ORDERED: [UNRECOGNIZED DRUG - OTHER] PO SCH (09:00)
[2017-01-04] MEDS ORDERED: ONDANSETRON HCL 4 MG/2 ML VIAL IV PUSH ONE (09:00)
[2017-01-04] MEDS ORDERED: DICLEGIS PO SCH (09:00)
--- NOTE | 2017-01-04 12:13 | HHI.PR ---
ORDINARY SEAMAN Note Note PT HAD ROUGH NIGHT, EMESIS X 5 STILL ONLY TOLERATING BITES OF TOAST AND SOME ORAL LIQUIDS MAP MAKER RECOMMENDS DOBHOFF PLACEMENT WITH TRICKLE FEEDING, THIS WAS DISCUSSED WITH PT DR CANO WANTS TO TRY ADDING DICLEGIS FOR ONE DAY AND IF THIS DOES NOT IMPROVE HER NAUSEA THAN TO PROCEED WITH DOBHOFF CONSULT ORDERED FOR ENT TSH AND CMP ORDERED IN AM A/O HEART REGULAR RATE AND RHYTHM LUNGS CLEAR TO AUSCULTATION ABD SOFT WITH DECREASE BS NO SWELLING OR TENDERNESS TO LOWER EXTREMITIES Kimmie Zuluaga Jan 04, 2017 12:13
--- NOTE | 2017-01-04 16:31 | MB ---
cc: TRISTIN WILSON MD DATE OF CONSULTATION 01/04/17 CHIEF COMPLAINT Hyperemesis gravidarum. HISTORY OF PRESENT ILLNESS The patient is a pleasant 41-year-old female with hyperemesis during . The patient notes an irritation in the back of her throat and we are asked to evaluate that. On examination the patient is a pleasant 41-year-old female who is currently stable who was getting IV fluids and resting in bed. She is not having any severe vomiting today yet but it typically worsens at 4 o'clock in the afternoon. After extensive questioning the patient notes that she has been having challenge with the hyperemesis and she has been seeing nutrition as well. On examination the patient was noted to have mild cobblestoning in the posterior oropharynx and mild inflammation in the back of the tongue. She did have a strong gag reflex but there is no evidence of malignancy and no large masses. However, my suggestions regarding her hyperemesis gravidarum are as follows: 1. Neti Pot rinse twice a day because of the overlying inflammation and the vomiting. This would certainly minimize any residual inflammation from the vomiting. Also, to consider Magic Mouth Wash 5 milliliters for 5 minutes twice a day, swish and spit. This Magic Mouth Wash is only to be given if cleared by the home team as for the patient's currently. Of course this is a swish and spit, so I will defer home team for final surgery regarding that. Also my further recommendation is if cleared by nutrition and by the home team to consider ashlyn root in her diet. This is discussing the actual root of ashlyn as opposed to a ashlyn ritchie, if cleared by they home team. This may help with her nausea. I also discussed with the patient with her chronic dehydration and inflammation with her nose and mouth to consider humidifying her air during these periods which a surgical mask to . This would be a mask with an elastic backing so that the knot in the back of her head would not be irritating. If she is able to use the mask with the elastic backing this would be much more comfortable. The patient may try this for two to three days during a period of vomiting prior to episodes beginning and to see if this helps her during this period by humidifying her air since she is chronically dehydrated. Lastly, I discussed the possibility of inhaling through her nose with alcohol swabs at the onset of the nausea. This has been shown with some surgical patients to decrease nausea without any intervening further medications and it reduces the nausea quite rapidly after inhaling the alcohol swab. However, I am not aware of the literature regarding patient, so again, I defer that to the home team to make up a final judgment on that as well. I hope these considerations are able to assist in the care of the patient. Home team may certainly give me a call regarding this for further discussion. Again, a number of these suggestions assist with other patients but not necessarily with patients as I have had little experience in this regard with the but please consider them and let us know if you have any questions. ADDENDUM REASON FOR CONSULTATION: Hyperemesis. NOTE: The patient is a patient female with hyperemesis gravidarum. I saw her two days ago. Since then, she has tried the face mask while she is sleeping however though she wore it she did have a knot in the back her throat which is uncomfortable. My recommendations are to use one without the knot in the back of the throat so that she can not take it off in the middle of the night because of a fullness sensation in the back of the throat. I also discussed with the patient speaking with the home team about the possibility of taking ashlyn at home if she is discharged within the next 24 hours if that would be safe for the as that may help with the hyperemesis as well. We discussed other options. She notes that she has less of a fullness sensation in the back of her throat today. I discussed that it is probably because she has not been vomiting recently over the last 48 hours it has been minimal. I discussed with the patient to follow up with us after the of the child and we will re-evaluate the back of the throat with a possible CT as well to ensure there are no subclinical masses present. The patient understands. She can also consider seeing us after the hyperemesis abates for a re-evaluation after the chronic inflammation would be resolved from the acid from the vomiting. The patient understands and agrees with the above. ADDENDUM Also of note is the patient shows an increased mass in her throat and in the future if it does not resolve to conservative measures, the patient may certainly follow up with us as an outpatient as she is getting discharged in the next 24 hours. We will certainly do a full evaluation of her in clinic as well. Thus if the symptoms of the increased ___ sensation persist in her throat, she can certainly follow up with us in the next two weeks in clinic for further evaluation. Tristin Wilson MD CCP/EO /3:28 PM /8:18 AM
[2017-01-05] VITALS (14 sets, daily range): BP systolic 93–112; BP diastolic 46–69; PULSE 68–90; RESP 16–18; TEMP 98.3–99
[2017-01-05] MEDS: METOCLOPRAMIDE HCL 10 MG/2 ML VIAL IV SCH ×3 (00:39→17:06)
[2017-01-05] MEDS: LACTATED RINGER'S 1000 ML INJ 1,000 ML IV SCH ×3 (04:44→18:51)
[2017-01-05] MEDS: ONDANSETRON HCL 4 MG/2 ML VIAL IV PUSH SCH ×4 (04:44→22:57)
[2017-01-05] MEDS: ACETAMINOPHEN 650 MG SUPP RECTAL PRN (06:15)
[2017-01-05 08:07] LABS: ALKALINE PHOSPHATASE 36 U/L (45-117); ALT (GPT) 18 U/L (10-53); ANION GAP 13 MEQ/L (5-15); AST (GOT) 15 U/L (15-37); BICARBONATE 21.5 MEQ/L (21.0-32.0); BLOOD UREA NITROGEN LESS THAN 1 MG/DL (7-18); CHLORIDE 103 MEQ/L (98-107); GLOMERULAR FILTRATION RATE 161 ML/MIN (>89); SODIUM (NA) 137 MEQ/L (136-145); TOTAL BILIRUBIN ADULT 0.4 MG/DL (0.2-1.0)
[2017-01-05 08:09] LABS: POTASSIUM 2.6 MEQ/L (3.5-5.1)
[2017-01-05] MEDS: [UNRECOGNIZED DRUG - OTHER] PO SCH ×3 (09:04→21:17)
[2017-01-05] MEDS: DICLEGIS PO SCH ×3 (09:04→21:17)
[2017-01-05 10:50] LABS: BLOOD UREA NITROGEN LESS THAN 1 MG/DL (7-18); GLOMERULAR FILTRATION RATE 170 ML/MIN (>89); SODIUM (NA) 137 MEQ/L (136-145)
[2017-01-05 10:51] LABS: ANION GAP 10 MEQ/L (5-15); BICARBONATE 24.3 MEQ/L (21.0-32.0); CHLORIDE 103 MEQ/L (98-107)
[2017-01-05 10:53] LABS: POTASSIUM 2.9 MEQ/L (3.5-5.1)
--- NOTE | 2017-01-05 10:54 | PD.OB.ANTE ---
Subjective Diagnosis: (1) Hyperemesis gravidarum Diagnosis: Principal (2) Hyperemesis gravidarum before end of 22 week gestation with electrolyte imbalance Diagnosis: Principal (3) Acute hypokalemia Diagnosis: Principal (4) Dehydration, severe Diagnosis: Principal Interval History Pt of Dr. Sommers's I am meeting for first time today, covering for him this wknd. Pt admitted for severe N/V in early , has PICC line, had been getting daily IVF as outpt but finally unable to tolerate any po and this is Hospital Day #4. Pt admitted 01/01/17. Pt states she has been doing better over past 24 hours. No emesis since yesterday morning. Was able to tolerate crackers, muffin, and dinner tray last evening on combination of IV Zofran, Phenergan suppository, IV Reglan, and oral Diclegis. Still gets nauseated but less today. Feeling slightly better. No VB , LOF, too early for FM. Antepartum ROS: Reports: Other (nausea but no vomiting since yesterday AM), Denies: New complaints, Loss of fluid, Vaginal bleeding, Contractions Objective Vital Signs Vital Signs Date Time Temp Pulse Resp B/P Pulse Ox O2 Delivery O2 Flow Rate FiO2 01/05/17 09:09 98.3 01/05/17 07:41 68 93/46 01/05/17 07:40 16 01/05/17 04:45 99.0 16 01/05/17 04:43 70 103/61 01/05/17 00:37 73 112/68 01/05/17 00:36 16 01/04/17 19:58 98.9 16 01/04/17 19:58 84 116/73 01/04/17 16:00 83 112/65 01/04/17 16:00 98.2 13 01/04/17 12:39 77 117/64 01/04/17 12:37 98.3 15 01/04/17 12:00 98.3 77 15 117/64 Lab & Micro Results Test 01/05/17 06:32 Sodium Level 137 MEQ/L Potassium Level 2.6 MEQ/L Chloride Level 103 MEQ/L Carbon Dioxide Level 21.5 MEQ/L Anion Gap 13 MEQ/L Blood Urea Nitrogen LESS THAN 1 MG/DL Creatinine 0.43 MG/DL Estimat Glomerular Filtration 161 ML/MIN Rate Random Glucose 78 MG/DL Calcium Level 8.1 MG/DL Total Bilirubin 0.4 MG/DL Aspartate Amino Transf 15 U/L (AST/SGOT) Alanine Aminotransferase 18 U/L (ALT/SGPT) Alkaline Phosphatase 36 U/L Total Protein 5.5 GM/DL Albumin 2.6 GM/DL Thyroid Stimulating Hormone 1.480 uIU/ML 3rd Gen Physical Exam GENERAL: Well-nourished, well-developed patient. Tired appearing, resting in bed. CARDIOVASCULAR: Regular rate and rhythm without murmurs, gallops, or rubs. RESPIRATORY: Breath sounds equal bilaterally. No accessory muscle use. ABDOMEN/GI: Abdomen soft, non-tender. Fundus: [beneath symphysis, c/w dates] GENITOURINARY: deferred EXTREMITIES: No cyanosis or edema, non-tender, without signs of DVT. Assessment and Plan Problem List: (1) Hyperemesis gravidarum Status: Acute (2) Hyperemesis gravidarum before end of 22 week gestation with electrolyte imbalance Status: Acute (3) Acute hypokalemia Status: Acute (4) Dehydration, severe Status: Acute Assessment and Plan 41 yo at 10w3d, now HD#4, admit for severe dehydration, hyperemesis gravidarum, now with acute hypokalemia 1) hyperemesis gravidarum: per Dr. Sommers, pt's TFTs have been tested as outpt and are normal; in H&P states pt has h/o hypothyroid, not on medication; will recheck labs tmrw AM for full panel; pt's symptoms are under better control today with IV Zofran, IV Reglan, phenergan suppository, and Diclegis, all scheduled. Will continue regimen for now and not attempt switch to po as pt had such severe symptoms and is only just now feeling better; will slowly transition over next few days if pt able to tolerate 1 medication change at a time; has lost 14# in [address] Sommers's H&P; s/p nutrition consult; due to pt currently tolerating po will NOT start TPN or OG tube feeds - s/p ENT consult, recommendations for supportive care, no abnormality/no mass/ no malignancy in posterior pharynx 2) acute hypokalemia: recheck ordered as acute change in past 24h despite pt clinically improving and tolerating po; if remains critical low will order replacement 3) h/o hypothyroid: will recheck labs tmrw as office labs unavail at this time 4) status: +FHTs on u/s in office 01/01/17; too early to monitor with doppler (<12 wks) 5) dispo: not meeting criteria Jordyn Honeycutt MD Jan 05, 2017 10:54
[2017-01-05] MEDS ORDERED: POTASSIUM CHLOR 20 MEQ PREMIX 100 ML IV ONE ×2 (11:00→16:00)
[2017-01-05] MEDS: NYSTAT/DIPHENHY/LIDO MOUTHWASH (Adult) 120ML SWISH-SPIT SCH ×2 (14:48→21:00)
[2017-01-06] MEDS: METOCLOPRAMIDE HCL 10 MG/2 ML VIAL IV SCH (01:00)
[2017-01-06] MEDS: LACTATED RINGER'S 1000 ML INJ 1,000 ML IV SCH ×4 (01:00→23:40)
[2017-01-06] MEDS: ONDANSETRON HCL 4 MG/2 ML VIAL IV PUSH SCH (05:05)
[2017-01-06] MEDS: NYSTAT/DIPHENHY/LIDO MOUTHWASH (Adult) 120ML SWISH-SPIT SCH ×2 (09:00→21:00)
[2017-01-06 09:16] LABS: ANION GAP 8 MEQ/L (5-15); BICARBONATE 24.6 MEQ/L (21.0-32.0); BLOOD UREA NITROGEN LESS THAN 1 MG/DL (7-18); CHLORIDE 104 MEQ/L (98-107); GLOMERULAR FILTRATION RATE 186 ML/MIN (>89); SODIUM (NA) 137 MEQ/L (136-145)
--- NOTE | 2017-01-06 09:29 | PD.OB.ANTE ---
Subjective Diagnosis: (1) Hyperemesis gravidarum Diagnosis: Principal (2) Hyperemesis gravidarum before end of 22 week gestation with electrolyte imbalance Diagnosis: Principal (3) Acute hypokalemia Diagnosis: Principal (4) Dehydration, severe Diagnosis: Principal Interval History Did well yesterday, slightly nauseous a few times but no vomiting. Now without emesis x 48 hours. No VB, LOF. Too early for FM. Pain 0/10. Antepartum ROS: Denies: New complaints, Loss of fluid, Vaginal bleeding, Contractions, Other Objective Vital Signs Vital Signs Date Time Temp Pulse Resp B/P Pulse Ox O2 Delivery O2 Flow Rate FiO2 01/05/17 19:23 90 101/66 01/05/17 19:22 98.9 16 01/05/17 15:49 18 01/05/17 15:48 88 105/69 01/05/17 15:47 99.0 01/05/17 11:44 98.8 18 01/05/17 11:43 77 105/57 Physical Exam GENERAL: Well-nourished, well-developed patient. Sitting up in bed, eating breakfast. CARDIOVASCULAR: Regular rate and rhythm without murmurs, gallops, or rubs. RESPIRATORY: Breath sounds equal bilaterally. No accessory muscle use. ABDOMEN/GI: Abdomen soft, non-tender. Fundus: beneath symphysis c/w dates GENITOURINARY: External Genitalia: deferred FHT's: +FCA on bedside ultrasound performed by [facility] EXTREMITIES: No cyanosis or edema, non-tender, without signs of DVT. Assessment and Plan Problem List: (1) Hyperemesis gravidarum Status: Acute (2) Hyperemesis gravidarum before end of 22 week gestation with electrolyte imbalance Status: Acute (3) Acute hypokalemia Status: Acute (4) Dehydration, severe Status: Acute Assessment and Plan 41 yo at 10w4d, now HD#5, admit for severe dehydration, hyperemesis gravidarum, developed acute hypokalemia with IV replacement ordered 01/05/17 1) hyperemesis gravidarum: - pt's symptoms are finally under control as of HD#4 with IV Zofran, IV Reglan, phenergan suppository, and Diclegis, all scheduled. today will transition to oral scheduled doses of Zofran & Reglan & see how pt does; - has lost 14# in [address] Sommers's H&P; s/p nutrition consult - s/p ENT consult, recommendations for supportive care, no abnormality/no mass/ no malignancy in posterior pharynx, pt used Magic Mouthwash yesterday without much improvement in symptoms 2) acute hypokalemia: IV replacement given yesterday; AM labs pending 3) h/o hypothyroid: TSH wnl this hospitalization, normal outpt labs per Dr. Sommers's verbal report 4) status: +FHTs on u/s in office 01/01/17 & again seen on bedside sono performed by me today (abdominal probe); too early to monitor with doppler (<12 wks) 5) dispo: not yet meeting criteria, if able to transition to po meds today with good symptoms control & if electrolytes back in normal range, possible d/c tmrw Jordyn Honeycutt MD Jan 06, 2017 09:29
[2017-01-06 09:33] LABS: POTASSIUM 2.9 MEQ/L (3.5-5.1)
[2017-01-06] MEDS ORDERED: METOCLOPRAMIDE HCL 10 MG TAB PO SCH (10:00)
[2017-01-06] MEDS ORDERED: AMPICILLIN-SULBACTAM INJ 3 GM in SODIUM CHLORIDE 0.9% INJ 100 ML IV SCH (10:00)
[2017-01-06] MEDS: DICLEGIS PO SCH ×3 (10:21→20:52)
[2017-01-06] MEDS: ONDANSETRON ODT 4 MG TAB PO SCH ×4 (10:21→23:08)
[2017-01-06] MEDS: [UNRECOGNIZED DRUG - OTHER] PO SCH ×3 (10:21→20:52)
[2017-01-06 12:00] VITALS: RESP 17; TEMP 98.7
--- NOTE | 2017-01-06 12:17 | MB ---
cc: TRISTIN WILSON MD DATE OF CONSULTATION: 01/06/2017. REASON FOR CONSULTATION: Hyperemesis. NOTE: The patient is a patient female with hyperemesis gravidarum. I saw her two days ago. Since then, she has tried the face mask while she is sleeping however though she wore it she did have a knot in the back her throat which is uncomfortable. My recommendations are to use one without the knot in the back of the throat so that she can not take it off in the middle of the night because of a fullness sensation in the back of the throat. I also discussed with the patient speaking with the home team about the possibility of taking ashlyn at home if she is discharged within the next 24 hours if that would be safe for the as that may help with the hyperemesis as well. We discussed other options. She notes that she has less of a fullness sensation in the back of her throat today. I discussed that it is probably because she has not been vomiting recently over the last 48 hours it has been minimal. I discussed with the patient to follow up with us after the of the child and we will re-evaluate the back of the throat with a possible CT as well to ensure there are no subclinical masses present. The patient understands. She can also consider seeing us after the hyperemesis abates for a re-evaluation after the chronic inflammation would be resolved from the acid from the vomiting. The patient understands and agrees with the above. Tristin Wilson MD [facility] /11:46 AM /12:08 PM
[2017-01-06 15:39] VITALS: BP 105/59; PULSE 84
[2017-01-06 15:51] VITALS: RESP 18
[2017-01-06 17:09] LABS: BICARBONATE 27.4 MEQ/L (21.0-32.0)
[2017-01-06 17:21] LABS: POTASSIUM 2.8 MEQ/L (3.5-5.1)
[2017-01-06] MEDS: POTASSIUM CHLOR 20 MEQ PREMIX 100 ML IV SCH ×2 (18:23→20:23)
[2017-01-06] MEDS: METOCLOPRAMIDE HCL 10 MG TAB PO SCH (18:33)
[2017-01-06 19:16] VITALS: TEMP 98.8
[2017-01-06 19:17] VITALS: BP 100/63; PULSE 87; RESP 16
[2017-01-07] MEDS: ONDANSETRON ODT 4 MG TAB PO SCH ×6 (02:00→22:00)
[2017-01-07] MEDS: METOCLOPRAMIDE HCL 10 MG TAB PO SCH ×3 (03:00→16:03)
[2017-01-07] MEDS: LACTATED RINGER'S 1000 ML INJ 1,000 ML IV SCH ×3 (06:20→19:40)
[2017-01-07 07:15] VITALS: BP 104/60; PULSE 77; RESP 18; TEMP 98.3
[2017-01-07] MEDS: DICLEGIS PO SCH ×3 (09:30→21:00)
[2017-01-07] MEDS: NYSTAT/DIPHENHY/LIDO MOUTHWASH (Adult) 120ML SWISH-SPIT SCH ×2 (09:30→21:00)
[2017-01-07] MEDS: [UNRECOGNIZED DRUG - OTHER] PO SCH ×3 (09:30→21:00)
[2017-01-07 13:50] VITALS: RESP 18; TEMP 99
[2017-01-07 13:51] VITALS: BP 87/50; PULSE 85
[2017-01-07] MEDS ORDERED: LACTATED RINGER'S 1000 ML INJ 1,000 ML IV ONE (14:15)
--- NOTE | 2017-01-07 16:37 | PD.OB.ANTE ---
Subjective Diagnosis: (1) Hyperemesis gravidarum Diagnosis: Principal (2) Hyperemesis gravidarum before end of 22 week gestation with electrolyte imbalance Diagnosis: Principal (3) Acute hypokalemia Diagnosis: Principal (4) Dehydration, severe Diagnosis: Principal Objective Vital Signs Vital Signs Date Time Temp Pulse Resp B/P Pulse Ox O2 Delivery O2 Flow Rate FiO2 01/07/17 13:51 85 87/50 01/07/17 13:50 99.0 18 01/07/17 07:15 77 104/60 01/07/17 07:15 98.3 01/07/17 07:15 18 01/06/17 19:17 16 01/06/17 19:17 87 100/63 01/06/17 19:16 98.8 Lab & Micro Results Test 01/07/17 04:20 Potassium Level 3.4 MEQ/L Physical Exam GENERAL: Well-nourished, well-developed patient. CARDIOVASCULAR: Regular rate and rhythm without murmurs, gallops, or rubs. RESPIRATORY: Breath sounds equal bilaterally. No accessory muscle use. ABDOMEN/GI: Abdomen soft, non-tender. EXTREMITIES: No cyanosis or edema, non-tender, without signs of DVT. Assessment and Plan Problem List: (1) Hyperemesis gravidarum Status: Acute (2) Hyperemesis gravidarum before end of 22 week gestation with electrolyte imbalance Status: Acute (3) Acute hypokalemia Status: Acute (4) Dehydration, severe Status: Acute Assessment and Plan 41 yo at 10w4d, now HD#6 admit for severe dehydration, hyperemesis gravidarum, developed acute hypokalemia with IV replacement ordered 01/05/17 1) hyperemesis gravidarum: - pt's denies emesis and nausea in better managed with oral scheduled doses of Zofran & Reglan, dietary intake improving; - s/p ENT consult, recommendations for supportive care, no abnormality/no mass/ no malignancy in posterior pharynx, pt used Magic Mouthwash yesterday without much improvement in symptoms, THESE ARE HELPING 2) acute hypokalemia: 3.4 3) h/o hypothyroid: TSH wnl 4) dispo: CONSIDER DC HOME TOMORROW, WITH IV FLUIDS DAILY Kimmie Zuluaga Jan 07, 2017 16:37
[2017-01-07 17:58] VITALS: BP 109/65; PULSE 84; RESP 18; TEMP 98.9
[2017-01-07 19:08] VITALS: BP 103/60; PULSE 78; RESP 18; TEMP 97.9
[2017-01-08] MEDS: ONDANSETRON ODT 4 MG TAB PO SCH ×3 (02:00→11:43)
[2017-01-08 05:55] VITALS: BP 96/55; PULSE 72
[2017-01-08 06:00] VITALS: RESP 18; TEMP 97.6
[2017-01-08] MEDS: NYSTAT/DIPHENHY/LIDO MOUTHWASH (Adult) 120ML SWISH-SPIT SCH (08:54)
[2017-01-08] MEDS: METOCLOPRAMIDE HCL 10 MG TAB PO SCH ×2 (08:54)
[2017-01-08] MEDS: DICLEGIS PO SCH ×2 (08:54→11:43)
[2017-01-08] MEDS: [UNRECOGNIZED DRUG - OTHER] PO SCH ×2 (08:54→11:43)
[2017-01-08 10:38] VITALS: BP 87/46; PULSE 84
[2017-01-08] MEDS ORDERED: METO10TA PO (10:57)
--- NOTE | 2017-01-08 10:59 | HHI.DCPOC ---
Discharge Care Plan Diagnosis: (1) Hyperemesis gravidarum before end of 22 week gestation with electrolyte imbalance Report Symptoms to Your Doctor -Temperature above 100.5 degrees -Unusual pain or calf pain -Increased vaginal bleeding -Painful or difficulty urinating Goals to Promote Your Health * To prevent worsening of your condition and complications * To maintain your health at the optimal level Directions to Meet Your Goals Take your medications as prescribed Follow your dietary instruction Follow activity as directed Ensure plenty of rest for recovery Drink fluids for hydration Keep your appointments as scheduled Take your immunizations and boosters as scheduled If your symptoms worsen call your PCP, if no PCP go to Urgent Care Center or Emergency Room Smoking is Dangerous to Your Health. Avoid second hand smoke Call the 24-hour crisis hotline for domestic abuse at Kimmie Zuluaga Jan 08, 2017 10:59
--- NOTE | 2017-01-08 11:15 | PD.OB.ANTE ---
Subjective Diagnosis: (1) Hyperemesis gravidarum Diagnosis: Principal (2) Hyperemesis gravidarum before end of 22 week gestation with electrolyte imbalance Diagnosis: Secondary (3) Acute hypokalemia Diagnosis: Secondary (4) Dehydration, severe Diagnosis: Secondary Objective Vital Signs Vital Signs Date Time Temp Pulse Resp B/P Pulse Ox O2 Delivery O2 Flow Rate FiO2 01/08/17 06:00 18 01/08/17 06:00 97.6 01/08/17 05:55 72 96/55 01/07/17 19:08 97.9 78 18 103/60 01/07/17 17:58 84 109/65 01/07/17 17:58 98.9 18 01/07/17 13:51 85 87/50 01/07/17 13:50 99.0 18 Physical Exam GENERAL: Well-nourished, well-developed patient. CARDIOVASCULAR: Regular rate and rhythm without murmurs, gallops, or rubs. RESPIRATORY: Breath sounds equal bilaterally. No accessory muscle use. ABDOMEN/GI: Abdomen soft, non-tender EXTREMITIES: No cyanosis or edema, non-tender, without signs of DVT. Assessment and Plan Problem List: (1) Hyperemesis gravidarum Status: Acute (2) Hyperemesis gravidarum before end of 22 week gestation with electrolyte imbalance Status: Acute (3) Acute hypokalemia Status: Acute (4) Dehydration, severe Status: Acute Assessment and Plan 41 yo HD#7 admit for severe dehydration, hyperemesis gravidarum, developed acute hypokalemia with IV replacement ordered 01/05/17 1) hyperemesis gravidarum: - pt's denies emesis and nausea is better with oral scheduled doses of diclegis , Zofran & Reglan, dietary intake continues to advance. 2) dispo: dc home today with daily infusion of 1 liter of LR WITH IV FLUIDS DAILY Kimmie Zuluaga Jan 08, 2017 11:15
[2017-01-08] MEDS ORDERED: LACTATED RINGER'S 1000 ML INJ 1,000 ML IV SCH (13:00)
--- NOTE | 2017-01-08 15:16 | HHI.DS ---
Admission Date Jan 03, 2017 at 09:33 Discharge Date: Jan 08, 2017 Admitting Diagnosis hyperemesis Diagnosis: (1) Hyperemesis gravidarum before end of 22 week gestation with electrolyte imbalance (2) Acute hypokalemia (3) Nausea and vomiting during (4) Dehydration, severe Brief History pt admitted with 14 pound weight loss due to nausea and vomiting Hospital Course pt admitted for rehydration and management of nausea and vomiting new medications were added to help with nausea potassium was replaced pt able to advance diet and improve n/v Pt Condition on Discharge: Good Discharge Disposition: Discharge Home Discharge Instructions Diet Instructions: As Tolerated, No Restrictions Additional Diet Instructions: JOSSELIN DIET AND SLOWLY ADVANCE, EAT SMALL FREQUENT MEALS Activities You Can Perform: Regular-No Restrictions Activities to Avoid: Strenuous Activity Additional Activity Instruc.: REST MUCH POSSIBLE Follow up Referrals: [facility] - 3-5 Days @ [facility] [place] New Medications: Metoclopramide (Metoclopramide) 10 Mg Tab 10 MG PO Q8H Nausea #30 Ref 1 TAB Continued Medications: Ondansetron Odt (Ondansetron Odt) 4 Mg Tab 4 MG PO Q6H PRN nausea #120 Ref 4 TAB Kimmie Zuluaga Jan 08, 2017 15:16
== END 2017-01-08 15:56 | disposition home or self-care (01) | DRG 781 ==
LOC: H2EA 13:59 → OBSVTOIN 01-03 09:33
PROVIDERS: ADMIT Obstetrics & Gynecology; ATTEND Obstetrics & Gynecology
DX: O21.1 Hyperemesis gravidarum with metabolic disturbance (principal); E86.0 Dehydration; Z3A.10 10 weeks gestation of pregnancy
CPT/HCPCS: 80048; 80053; 81001; 84132; 84443; 85025; G0378; J1642; J2405; J2765; J3480; J7120

== ENCOUNTER 2017-01-13 10:13 | Emergency (ER) | payer MEDICAID ==
[~2017-01-13] VITALS: Ht 165.1 cm; Wt 77.0 kg
[~2017-01-13 10:13] MED LIST changes: +METO10TA PO
[2017-01-13 10:15] VITALS: BP 145/78; PULSE 102; RESP 20; TEMP 98.5; O2SAT 97
[2017-01-13] MEDS ORDERED: PROM25TA10 PO (10:32)
[2017-01-13] MEDS: SODIUM CHLORID 0.9% 500 ML INJ 500 ML IV SCH ×2 (11:00→12:24)
[2017-01-13] MEDS ORDERED: GLYCERIN ADULT 2 GM SUPP RECTAL ONE (11:00)
[2017-01-13] MEDS ORDERED: MAGNESIUM CITRATE SOLN 300 ML BTL PO ONE (11:00)
[2017-01-13] MEDS ORDERED: MAGNSOL2 PO (11:24)
[2017-01-13] MEDS ORDERED: MIRA3350 PO (11:24)
--- NOTE | 2017-01-13 11:25 | PD ---
HPI Chief Complaint: GI Complaint Time Seen by Provider: 10:28 Travel History International Travel<30 days: No Contact w/Intl Traveler<30days: No Traveled to known affect area: No History of Present Illness HPI 41 year-old woman presents to the emergency department complaining of abdominal cramping. She is about 10 weeks , due in July 31, 2 para 1. She was recently admitted for dehydration. She has a PICC line and gives herself IV fluids about a pack a day or so. She's been eating better now. Nausea is under control. She she's not had a bowel movement in a week however. States she feels like she has to go but is having a lot of abdominal cramping and pain. She's use MiraLAX, Colace, and an enema this morning without significant relief. History Past Medical History Narrative Medical Nausea vomiting of Tetanus Vaccination: < 5 Years LMP: 10/24/16 : 2 Para: 1 Social History Alcohol Use: No Tobacco Use: No Allergies-Medications (Allergen,Severity, Reaction): Coded Allergies: No Known Allergies (Unverified , 01/13/17) Reported Meds & Prescriptions Reported Meds & Active Scripts Active Metoclopramide (Metoclopramide HCl) 10 Mg Tab 10 Mg PO Q8H Ondansetron Odt 4 Mg Tab 4 Mg PO Q6H PRN Reported Phenergan (Promethazine HCl) 25 Mg Tablet 25 Mg PO Q6H PRN Review of Systems Except as stated in HPI: all other systems reviewed are Neg Physical Exam Narrative GENERAL: Well-appearing 41 year-old woman, no acute distress. SKIN: Focused skin assessment warm/dry. CARDIOVASCULAR: Regular rate and rhythm. No murmur appreciated. RESPIRATORY: No accessory muscle use. Clear to auscultation. Breath sounds equal bilaterally. GASTROINTESTINAL: Abdomen soft, non-tender, nondistended. Hepatic and splenic margins not palpable. MUSCULOSKELETAL: No obvious deformities. No clubbing. No cyanosis. No edema. RECTAL: Firm stool but not rockhard in the rectal vault. Broken up. Data Data Last Documented VS Vital Signs Date Time Temp Pulse Resp B/P Pulse Ox O2 Delivery O2 Flow Rate FiO2 01/13/17 10:15 98.5 102 20 145/78 97 Room Air Orders Magnesium Citrate Liq (Citroma Liq) (01/13/17 11:00) Sodium Chlorid 0.9% 500 Ml Inj (Ns 500 M (01/13/17 11:00) Glycerin Adult Supp (Glycerin Adult Supp (01/13/17 11:00) Ed Poc Ultrasound (01/13/17 ) [facility] Medical Decision Making Medical Screen Exam Complete: Yes Emergency Medical Condition: Yes Differential Diagnosis Constipation, cramping, dehydration, other Narrative Course Medical decision-making 41 year-old woman presents emergent department with abdominal cramping and constipation. Looks well. No vaginal bleeding discharge or pelvic cramping. Bedside ultrasound was reassuring. Rectal exam performed. We'll do glycerin suppository, magnesium citrate, reassess. Discussed with Dr. Sommers, the patients MAGNETIC TESTING TECHNICIAN. Diagnosis Primary Impression: Constipation Additional Instructions: If no substantial bowel movement in 24 hours take second dose of magnesium citrate. Continue MiraLAX daily, titrate to regular bowel movements. Follow-up with your MAGNETIC TESTING TECHNICIAN in the next 2-4 days. Return to the emergency department for any new or worsening symptoms. Med/Other Pt SpecificInfo: Prescription(s) given Scripts Magnesium Citrate Liq 300 Ml [id number] Ml PO DIRECTED #1 BOTTLE Prov:Geremias Andrew MD 01/13/17 Polyethylene Glycol 3350 Powder (Miralax Powder)17 Gm Powd17 Gm PO DAILY #1 CAN Mix and dissolve one measuring cap-ful (17 grams) in water or juice. Prov:Geremias Andrew MD 01/13/17 Disposition: 01 DISCHARGE HOME Condition: Stable Geremias Andrew MD Jan 13, 2017 11:25
[2017-01-13] MEDS ORDERED: GLYC2SUP RECTAL (12:36)
== END 2017-01-13 14:00 | disposition home or self-care (01) ==
LOC: NEPE 10:13
DX: O99.611 Diseases of the digestive system complicating pregnancy, first trimester (principal); K59.00 Constipation, unspecified; Z3A.10 10 weeks gestation of pregnancy
CPT/HCPCS: 96360; 99284; J7040

== ENCOUNTER → 2017-05-23 | Outpatient (CLI) | payer MEDICAID ==
[~2017-05-23] MED LIST changes: +GLYC2SUP RECTAL; +MAGNSOL2 PO; +MIRA3350 PO; +PROM25TA10 PO
== END ==
LOC: HPND 13:40
PROVIDERS: ATTEND Obstetrics & Gynecology
DX: O09.523 Supervision of elderly multigravida, third trimester (principal); O34.13 Maternal care for benign tumor of corpus uteri, third trimester; O44.43 Low lying placenta NOS or without hemorrhage, third trimester
CPT/HCPCS: 76816; 76817

== ENCOUNTER 2017-06-18 11:45 | Emergency (ER) | payer MEDICAID ==
[2017-06-18] VITALS (41 sets, daily range): BP systolic 98; BP diastolic 60–78; PULSE 103–131; TEMP 99.4
[~2017-06-18] VITALS: Ht 165.1 cm; Wt 89.8 kg
--- NOTE | 2017-06-18 12:44 | PD ---
HPI Chief Complaint abdominal pain, vomiting Date Seen: Jun 18, 2017 Travel History International Travel<30 Days: No Contact w/Intl Traveler<30Days: No History of Present Illness HPI Ms. Aguilar is a [address] Sommers at 33 6/7 weeks GA (KRYSTIAN ). Patient reports having abdominal cramping and vomitus overnight from 430-730 AM this morning; patient has also had diarrhea for several days. Patient attributes her symptoms to likely being related to a virus, as her 2 year old son has recently had vomiting and diarrhea; other family members have also had similar symptoms. Patient also reports feeling chills today but is not aware of any fevers. Patient has been able to maintain oral intake with fluids such as Tahmina ritchie, but has had decreased fluid consumption overall. Patient also reports some coughing. Patient wants to make sure her abdominal pain is not related to contractions although she does not think she is in labor. No decreased FM reported. Patient does not report any vaginal bleeding or discharge. Patient reports benign course; she has not yet had glucose tolerance testing yet and had GDM with prior gestation. Weeks Gestation: 33 Para: 1 : 2 History Past Medical History Narrative Medical borderline GDM with prior anemia Obstetric History Obstetric History Borderline GDM Past Surgical History Surgical History: No Previous Surgery Family History Family History: Negative Social History Alcohol Use: No Tobacco Use: No Substance Abuse: No Allergies-Medications (Allergen,Severity, Reaction): Coded Allergies: No Known Allergies (Unverified Allergy, Unknown, 06/18/17) Home Meds Active Scripts Ranitidine (Ranitidine 75) 75 Mg Tab, 75 MG PO BID for Heartburn, #30 TAB 0 Refills Take 30 to 60 minutes before eating food or drinking beverages that cause heartburn. Prov:Jose Armando Holbrook MD, R3 06/18/17 Ondansetron Odt (Zofran Odt) 4 Mg Tab, 4 MG SL Q8HR Y for Nausea/Vomiting, #30 TAB 0 Refills Prov:Jose Armando Holbrook MD, R3 06/18/17 Discontinued Reported Medications Promethazine (Phenergan) 25 Mg Tablet, 25 MG PO Q6H Y for NAUSEA OR VOMITING, TAB 0 Refills 01/13/17 Discontinued Scripts Glycerin Adult Supp (Glycerin Adult Supp) 2 Gm Supp, 2 GM RECTAL ONCE Y for CONSTIPATION, #2 SUPP 0 Refills Prov:Geermias Andrew MD 01/13/17 Magnesium Citrate Liq (Magnesium Citrate Liq) 300 Ml Liq, 300 ML PO DIRECTED , #1 BOTTLE Prov:Geremias Andrew MD 01/13/17 Polyethylene Glycol 3350 Powder (Miralax Powder) 17 Gm Powd, 17 GM PO DAILY for Constipation, #1 CAN Mix and dissolve one measuring cap-ful (17 grams) in water or juice. Prov:Geremias Andrew MD 01/13/17 Metoclopramide (Metoclopramide) 10 Mg Tab, 10 MG PO Q8H for Nausea, #30 TAB 1 Refill Prov:Kimmie Zuluaga 01/08/17 Ondansetron Odt (Ondansetron Odt) 4 Mg Tab, 4 MG PO Q6H Y for nausea, #120 TAB 4 Refills Prov:Homero Sommers MD 12/19/16 Physical Exam maternal HR- 110's-120's BP 117/74 Narrative GENERAL: Well-nourished, well-developed patient. SKIN: Warm and dry. HEAD: Normocephalic and atraumatic. EYES: No scleral icterus. No injection or drainage. ENT: No nasal drainage noted. Mucous membranes pink. Airway patent. NECK: Supple, trachea midline. No JVD. CARDIOVASCULAR: Regular rate and rhythm without murmurs. Normal perfusion RESPIRATORY: CTAB; normal rate ABDOMEN/GI: Abdomen soft, non-tender, bowel sounds present, no rebound, no guarding Gravid EXTREMITIES: No cyanosis or edema. BACK: Nontender without obvious deformity. No CVA tenderness. NEUROLOGICAL: Awake and alert. Motor and sensory function grossly within normal limits. GENITOURINARY: External Genitalia: intact and normal in appearance Cervix: Dilatation: 0-1cm Effacement: soft, 0% Station: -3 Presentation: Vertex Membranes: Intact Uterine Contractions: q2min irritability/irregular cx FHT's: Category: 1-2 (baseline borderline tachy, otherwise normal) Baseline: 150 Reactive: Y Variability: Mod Decels: None Data Data Vital Signs Reviewed: Yes MDM Medical Record Reviewed: Yes Narrative Course / MDM [address] Sommers at 33 6/7 weeks GA (KRYSTIAN 07/31/2017) -Cat 1 rhythm (intermediate periods of tachycardia) -Irregular contractions on CTG -mild maternal tachycardia -reported nausea/vomiting Plan: -Continue to monitor VS -Continue to monitor EFM and CTG -Will encourage oral hydration -Will start IVF -Will check CBC, CMP, UA Interval: EFM- patient with persistent baseline ~160; reactive CTG- contractions q3-4 min; recently more irregular after 2 L LR Labs: CBC- WBC 15.7, Hgb 11.9, PLT 227 CMP- LFT's wnl, Cr wnl UA- 80 ketones, protein 30, mod leuk esterase, 1 WBC, 27 squamous cells, mod bacteria Cervix recheck - 0-1, unchanged Updated Plan- -Due to spacing of contractions, reassuring FHR, and reassuring labs, patient deemed stable for discharge home and frequent oral hydration. Patient instructed to return to OB ED with any increase in abdominal pain/contractions, vaginal discharge, general worsening, or concerns -Patient will f/u with Dr. Sommers next week or sooner at OB ED if needed -I will f/u urine culture and call patient for treatment if needed Diagnosis Diagnosis: Primary Impression: Nausea and vomiting during Additional Impression: Abdominal pain affecting Disposition: 01 DISCHARGE HOME Condition: Stable Scripts Ranitidine (Ranitidine 75) 75 Mg Tab 75 MG PO BID for Heartburn, #30 TAB 0 Refills Take 30 to 60 minutes before eating food or drinking beverages that cause heartburn. Prov: Jose Armando Holbrook MD, R3 06/18/17 Ondansetron Odt (Zofran Odt) 4 Mg Tab 4 MG SL Q8HR Y for Nausea/Vomiting, #30 TAB 0 Refills Prov: Jose Armando Holbrook MD, R3 06/18/17 Patient Instructions: Abdominal Pain in (ED), Movement (ED), General Instructions Departure Forms: Tests/Procedures, Work Release Enter return to work date: Jun 24, 2017 Jose Armando Holbrook MD, R3 Jun 18, 2017 12:44
[2017-06-18] MEDS ORDERED: LACTATED RINGER'S 1000 ML INJ 1,000 ML IV SCH (13:13)
[2017-06-18] MEDS ORDERED: CALCIUM CARBONATE 500 MG CHEWABLE TAB CHEW ONE (13:30)
[2017-06-18] MEDS ORDERED: ONDANSETRON HCL 4 MG/2 ML VIAL IV PUSH PRN (14:00)
[2017-06-18 14:14] LABS: HEMATOCRIT 35.4 % (35.0-46.0); HEMOGLOBIN 11.9 GM/DL (11.6-15.3); MEAN CELL VOLUME 93.5 FL (80.0-100.0); MEAN CORPUSCULAR HEMOGLOBIN 31.5 PG (27.0-34.0); MEAN CORPUSCULAR HGB CONC 33.7 % (32.0-36.0); MEAN PLATELET VOLUME 7.5 FL (7.0-11.0); PLATELET COUNT 227 TH/MM3 (150-450); RED BLOOD COUNT 3.79 MIL/MM3 (4.00-5.30); RED CELL DISTRIBUTION WIDTH 14.3 % (11.6-17.2); WHITE BLOOD COUNT 15.7 TH/MM3 (4.0-11.0)
[2017-06-18 14:25] LABS: BACTERIA, URINE MOD /hpf; BILIRUBIN, URINE NEG (NEG); BLOOD, URINE NEG (NEG); GLUCOSE,URINE NEG (NEG); KETONE, URINE 80 mg/dL (NEG); MUCUS URINE FEW /lpf (OCC); NITRITE,URINE NEG (NEG); SQUAMOUS EPITHELIAL CELL URINE 27 /hpf (0-5); URINE COLOR YELLOW (YELLW/STRAW); URINE LEUKOCYTE ESTERASE MOD (NEG)
[2017-06-18 14:28] LABS: ALBUMIN 2.8 GM/DL (3.4-5.0); AST (GOT) 15 U/L (15-37); BICARBONATE 20.8 MEQ/L (21.0-32.0); BLOOD UREA NITROGEN 9 MG/DL (7-18); CALCIUM 8.5 MG/DL (8.5-10.1); CHLORIDE 105 MEQ/L (98-107); CREATININE 0.59 MG/DL (0.50-1.00); GLOMERULAR FILTRATION RATE 112 ML/MIN (>89); GLUCOSE,RANDOM 84 MG/DL (74-106); SODIUM (NA) 136 MEQ/L (136-145)
[2017-06-18 14:29] LABS: ALT (GPT) 13 U/L (10-53)
[2017-06-18 14:31] LABS: ALKALINE PHOSPHATASE 117 U/L (45-117); TOTAL BILIRUBIN ADULT 0.4 MG/DL (0.2-1.0); TOTAL PROTEIN 6.9 GM/DL (6.4-8.2)
[2017-06-18] MEDS ORDERED: TERBUTALINE INJ 1 MG/ML AMP SQ ONE (15:00)
[2017-06-18] MEDS ORDERED: CALCIUM CARBONATE 500 MG CHEWABLE TAB CHEW PRN (16:15)
[2017-06-18] MEDS ORDERED: RANI1TAB5 PO (17:17)
[2017-06-18] MEDS ORDERED: ZOFR4TAB3 SL (17:17)
== END 2017-06-18 18:23 | disposition home or self-care (01) ==
LOC: HOBED 11:45
DX: O21.2 Late vomiting of pregnancy (principal); Z3A.33 33 weeks gestation of pregnancy
CPT/HCPCS: 80053; 81001; 85027; 87086; 96374; 99284; J2405; J7120

== ENCOUNTER 2017-07-19 20:56 | Emergency (ER) | payer MEDICAID ==
[~2017-07-19] VITALS: Ht 165.1 cm; Wt 90.5 kg
[~2017-07-19 20:56] MED LIST changes: -GLYC2SUP RECTAL; -MAGNSOL2 PO; -METO10TA PO; -MIRA3350 PO; -ONDA4TAB7 PO; -PROM25TA10 PO; +RANI1TAB5 PO; +ZOFR4TAB3 SL
[2017-07-19 21:00] VITALS: BP 124/73; PULSE 95; RESP 18; TEMP 98.4; O2SAT 98
[2017-07-19] MEDS ORDERED: CEPH-460 PO (22:26)
--- NOTE | 2017-07-19 22:32 | PD ---
HPI Chief Complaint: ENT Complaint Time Seen by Provider: 22:18 Travel History International Travel<30 days: No Contact w/Intl Traveler<30days: No Traveled to known affect area: No History of Present Illness HPI 41-year-old female that presents to the ED for evaluation of right neck lump. Patient has had this since Saturday. Patient is very tender. 3 out of 10. Denies any other medical issues. No urinary or bowel movement issues. No fevers chills or sweats. Some dental pain but she does not believe that is coming from her tooth. She denies any trouble swallowing. Able to do it. She is about 37 weeks has had no issues with the . She states compliant with her medications for . No chest pain or shortness of breath. No other medical issues. No drainage. No discharge. PFSH Past Medical History Cancer: No Cardiovascular Problems: No Diminished Hearing: No Endocrine: Yes Genitourinary: No Immune Disorder: No Musculoskeletal: No Neurologic: Yes Psychiatric: No Reproductive: No Respiratory: No Migraines: Yes Thyroid Disease: Yes ?: : 2 Para: 1 Family History Family Hypercholesterolemia: Yes Social History Alcohol Use: No Tobacco Use: No Substance Use: No Allergies-Medications (Allergen,Severity, Reaction): Coded Allergies: No Known Allergies (Unverified Allergy, Unknown, 07/19/17) Reported Meds & Prescriptions Reported Meds & Active Scripts Active Keflex (Cephalexin) 500 Mg Cap 500 Mg PO Q8H 10 Days Ranitidine 75 (Ranitidine HCl) 75 Mg Tab 75 Mg PO BID Take 30 to 60 minutes before eating food or drinking beverages that cause heartburn. Zofran Odt (Ondansetron Odt) 4 Mg Tab 4 Mg SL Q8HR PRN Review of Systems Except as stated in HPI: all other systems reviewed are Neg Physical Exam Narrative GENERAL: SKIN: Warm and dry. HEAD: Atraumatic. Normocephalic. EYES: Pupils equal and round. No scleral icterus. No injection or drainage. ENT: No nasal bleeding or discharge. Mucous membranes pink and moist. Tongue is midline. No uvula deviation. Patient does have swelling lump on the right lower mandible. Right around the area of the submandibular salivary gland. No obvious lymphadenopathy noted. Dental: There appear to be intact. No sign of active infection at this time. NECK: Trachea midline. No JVD. CARDIOVASCULAR: Regular rate and rhythm. RESPIRATORY: No accessory muscle use. Clear to auscultation. Breath sounds equal bilaterally. GASTROINTESTINAL: Abdomen soft, non-tender, nondistended. Hepatic and splenic margins not palpable. MUSCULOSKELETAL: Extremities without clubbing, cyanosis, or edema. No obvious deformities. NEUROLOGICAL: Awake and alert. No obvious cranial nerve deficits. Motor grossly within normal limits. Five out of 5 muscle strength in the arms and legs. Normal speech. PSYCHIATRIC: Appropriate mood and affect; insight and judgment normal. Data Data Last Documented VS Vital Signs Date Time Temp Pulse Resp B/P (MAP) Pulse Ox O2 Delivery O2 Flow Rate FiO2 07/19/17 22:20 16 07/19/17 21:00 98.4 95 124/73 (90) 98 Orders Orders Ed Discharge Order (07/19/17 22:27) [facility] Medical Decision Making Medical Screen Exam Complete: Yes Emergency Medical Condition: Yes Medical Record Reviewed: Yes Differential Diagnosis Sialadenitis versus lymphadenopathy versus abscess Narrative Course 41-year-old female that presents to the ED for evaluation of lump to the right neck. Patient was properly examined and was found to have signs and symptoms consistent with what appears to be some tinnitus. Possible stone versus infection. We'll treat with Keflex to cover for infection as she is . Patient was met work that this medication is safe during . Patient was told to take Tylenol for pain and sore candy to help with symptoms. Patient agrees with plan. Follow with PCP. See ED worsening symptoms. Diagnosis Primary Impression: Sialadenitis Patient Instructions: General Instructions Additional Instructions: Take medication as prescribed. Follow with PCP. See ED worsening symptoms. Keflex is category B and is safe during . Sour candy to help express saliva and stone if there is a stone. Med/Other Pt SpecificInfo: Prescription(s) given Scripts Cephalexin (Keflex) 500 Mg Cap 500 MG PO Q8H for Infection for 10 Days, #30 CAP 0 Refills Prov: Yaa Loera MD 07/19/17 Disposition: 01 DISCHARGE HOME Condition: Stable You Torres Jul 19, 2017 22:32
== END 2017-07-19 22:43 | disposition home or self-care (01) ==
LOC: NEPC 20:56
DX: O26.893 Other specified pregnancy related conditions, third trimester (principal); K11.20 Sialoadenitis, unspecified; Z3A.37 37 weeks gestation of pregnancy
CPT/HCPCS: 99283

== ENCOUNTER 2017-07-30 05:36 | Inpatient (IN) | payer MEDICAID ==
[2017-07-30] VITALS (26 sets, daily range): BP systolic 85–133; BP diastolic 46–94; PULSE 82–127; RESP 16–19; TEMP 98.4
[~2017-07-30] VITALS: Ht 165.1 cm; Wt 91.0 kg
[~2017-07-30 05:36] MED LIST changes: +CEPH-460 PO
[2017-07-30] MEDS ORDERED: LACTATED RINGER'S 1000 ML IV SCH (06:00)
[2017-07-30] MEDS ORDERED: MINERAL OIL 10 ML VIAL TOPICAL PRN (06:00)
[2017-07-30] MEDS ORDERED: LIDOCAINE HCL 1% 50 ML VIAL INFIL PRN (06:00)
[2017-07-30] MEDS ORDERED: OXYTOCIN 30 UNITS/NS 500ML PREMIX IV PRN (06:00)
[2017-07-30] MEDS ORDERED: NS 500 ML BOLUS IV PRN (06:00)
[2017-07-30] MEDS ORDERED: OXYTOCIN 30 UNITS 500ML PREMIX IV ONE (06:00)
[2017-07-30] MEDS ORDERED: LIDOCAINE HCL 1% 50 ML VIAL I-DERMAL PRN (06:00)
[2017-07-30] MEDS ORDERED: ONDANSETRON HCL 4 MG/2 ML VIAL IV PUSH PRN (06:00)
[2017-07-30] MEDS ORDERED: CITRIC ACID-SODIUM CITRATE LIQ 30 ML UDC PO SCH (06:00)
[2017-07-30] MEDS ORDERED: NS 1000 ML IV PRN (06:00)
[2017-07-30] MEDS ORDERED: LACTATED RINGER'S 1000 ML BOLUS IV PRN (06:00)
[2017-07-30] MEDS ORDERED: PRENTAB7 PO (06:34)
[2017-07-30] MEDS ORDERED: FERR325T18 PO (06:34)
[2017-07-30] MEDS ORDERED: VALT500T PO (06:35)
[2017-07-30] MEDS ORDERED: PENICILLIN G POT 5,000,000 UNITS/NS 100 ML (Mini-Bag Plus) IV ONE ×2 (07:00)
[2017-07-30 07:09] LABS: AUTOMATED NEUTROPHIL # 8.9 TH/MM3 (1.8-7.7); BASOPHIL % 0.4 % (0.0-2.0); EOSINOPHIL # 0.1 TH/MM3 (0-0.4); EOSINOPHIL % 0.5 % (0.0-4.0); HEMATOCRIT 31.7 % (35.0-46.0); HEMOGLOBIN 10.8 GM/DL (11.6-15.3); LYMPH % 16.1 % (9.0-44.0); LYMPHOCYTE # 1.9 TH/MM3 (1.0-4.8); MEAN CELL VOLUME 90.6 FL (80.0-100.0); MEAN CORPUSCULAR HEMOGLOBIN 30.8 PG (27.0-34.0); MEAN PLATELET VOLUME 7.9 FL (7.0-11.0); MONOCYTE # 0.8 TH/MM3 (0-0.9); PLATELET COUNT 253 TH/MM3 (150-450); RED CELL DISTRIBUTION WIDTH 14.1 % (11.6-17.2); WHITE BLOOD COUNT 11.7 TH/MM3 (4.0-11.0)
[2017-07-30 07:23] LABS: BACTERIA, URINE MOD /hpf; BILIRUBIN, URINE NEG (NEG); BLOOD, URINE NEG (NEG); GLUCOSE,URINE NEG (NEG); KETONE, URINE TRACE mg/dL (NEG); MUCUS URINE FEW /lpf (OCC); NITRITE,URINE NEG (NEG); SQUAMOUS EPITHELIAL CELL URINE 10 /hpf (0-5); URINE COLOR YELLOW (YELLW/STRAW); URINE LEUKOCYTE ESTERASE LARGE (NEG)
[2017-07-30] MEDS ORDERED: fentaNYL 2MCG-BUPIV 0.125% INJ 100 ML ONE (07:33)
[2017-07-30] MEDS ORDERED: ePHEDrine/NS 25 MG/5 ML SYRINGE ONE (07:33)
[2017-07-30] MEDS ORDERED: DO NOT ADMINISTER ANTICOAGULANTS PRN (10:45)
[2017-07-30] MEDS ORDERED: ePHEDrine/NS 25 MG/5 ML SYRINGE IV PUSH PRN (10:45)
[2017-07-30] MEDS ORDERED: NO SYSTEM NARCOTICS PRN (10:45)
[2017-07-30] MEDS ORDERED: fentaNYL 2MCG-BUPIV 0.125% 100 ML EPIDURAL SCH (10:45)
[2017-07-30] MEDS ORDERED: PENICILLIN G POT 2,500,000 UNITS/NS 100 ML IV SCH ×2 (11:00)
[2017-07-30] MEDS ORDERED: MEASLES, MUMPS, RUBELLA VACCINE 0.5 ML VIAL SQ ONE (16:00)
[2017-07-30] MEDS ORDERED: DIPHTH/TETANUS/ACEL PERTUSSIS (BOOSTER) 0.5 ML VIAL/PFS IM ONE (16:00)
--- NOTE | 2017-07-30 17:30 | HHI.PR ---
Objective Vital Signs Date Time Temp Pulse Resp B/P (MAP) Pulse Ox O2 Delivery O2 Flow Rate FiO2 07/30/17 16:30 121 129/68 (88) 07/30/17 16:00 127 133/94 (107) 07/30/17 15:30 89 105/46 (65) 07/30/17 15:00 94 122/73 (89) 07/30/17 14:30 98 123/66 (85) 07/30/17 14:15 17 07/30/17 14:00 85 116/71 (86) 07/30/17 12:00 18 07/30/17 10:15 19 07/30/17 10:15 16 07/30/17 08:45 18 07/30/17 07:15 16 Result Diagram: 07/30/17 0640 Assessment and Plan Assessment and Plan Pushing just over 2 hours with an epidural. has made significant progress since last exam 30 min ago. Moved from 0 station to +3 Will let her push 20-30 min and try to give her a break and apply the vacuum She has plenty of room First baby was quite large. Homero Sommers MD Jul 30, 2017 17:29
[2017-07-30] MEDS ORDERED: MISOPROSTOL 200 MCG TAB ONE (18:25)
[2017-07-30] MEDS ORDERED: MEPERIDINE HCL 50 MG/ML VIAL ONE (18:28)
--- NOTE | 2017-07-30 18:46 | PD.OB.DELI ---
Weeks gestation: 39 Gest age assessed date: Jul 30, 2017 Pt started active labor?: Yes Active labor start date: Jul 30, 2017 Medical induction of labor?: Yes Medical induction start date: Jul 30, 2017 Medical induction start time: 08:00 Artificial rupture of membrane: Yes Artificial ROM date: Jul 30, 2017 Artifical ROM time: 08:00 Anesthesia: Epidural Episiotomy: Midline Vaginal Delivery: Vacuum Presentation: Occiput posterior Nuchal Cord: None Delayed cord clamping (45 sec): Yes Shoulder Dystocia: Charlie maneuver done : Female Delivery date: Jul 30, 2017 Delivery time: 18:00 One Minute : 8 Five Minute : 9 Weight: 9/3 Placenta: Manual removal, Intact, Uterus explored +, 3 vessel cord Laceration: Episiotomy, 2 deg Repair: Vicryl running Estimated blood loss: 500cc Additional Information Delivery of Jolly after 2 1/2 hours of pushing Used vacuum for two uterine contractions and then delivered with final push over 2nd degree episiotomy. Delivered OP!! Turtle sign resolved with Mc Campbell maneuver then delivered easily. Placenta manual removal after 20 minutes and encountered a PPH and explored uterus and massaged for about 5 minutes. Cytotec 400micrograms given per rectum Episiotomy repaired with 3-0 vicryl running. Small skin tag of right thigh excised, Will check cbc in the am Homero Sommers MD Jul 30, 2017 18:46
[2017-07-30] MEDS ORDERED: MISOPROSTOL 200 MCG TAB RECTAL ONE (19:00)
[2017-07-30] MEDS ORDERED: ALUMINUM/MAGNESIUM/SIMETH 30 ML CUP PO PRN (19:00)
[2017-07-30] MEDS ORDERED: BENZOCAINE 20% TOPICAL SPRAY 60 ML CAN TOPICAL PRN (19:00)
[2017-07-30] MEDS ORDERED: OXYTOCIN 30 UNITS-500ML PREMIX 500 ML IV SCH (19:00)
[2017-07-30] MEDS ORDERED: oxyCODONE/ACETAMINOPHEN 5 MG/325 MG TAB PO PRN ×2 (19:00)
[2017-07-30] MEDS ORDERED: WITCH HAZEL 50%/GLYCERIN 12.5% 40 PAD JAR TOPICAL PRN (19:00)
[2017-07-30] MEDS ORDERED: OXYTOCIN 30 UNITS-500ML PREMIX 500 ML IV ONE (19:00)
[2017-07-30] MEDS ORDERED: ZOLPIDEM TARTRATE 5 MG TAB PO PRN (19:00)
[2017-07-30] MEDS ORDERED: SODIUM CHLORIDE 0.9% FLUSH 10 ML FLUSH IV FLUSH PRN (19:00)
[2017-07-30] MEDS ORDERED: ONDANSETRON ODT 4 MG TAB PO PRN (19:00)
[2017-07-30] MEDS ORDERED: MEPERIDINE HCL 50 MG/ML VIAL IV PUSH ONE (19:00)
[2017-07-30] MEDS ORDERED: SODIUM CHLORIDE 0.9% FLUSH 10 ML FLUSH IV FLUSH SCH (21:00)
[2017-07-31] MEDS: ACETAMINOPHEN 325 MG TAB PO PRN ×5 (02:29→22:55)
[2017-07-31] MEDS: IBUPROFEN 800 MG TAB PO PRN ×3 (02:29→18:19)
[2017-07-31 08:00] VITALS: BP 107/64; PULSE 88; RESP 16; TEMP 97.9
[2017-07-31] MEDS: DOCUSATE SODIUM 50 MG/SENNA 8.6 MG TAB PO PRN ×2 (09:12→22:54)
--- NOTE | 2017-07-31 11:28 | HHI.OB ---
Subjective Post Day: 1 Objective Vitals/I&O Vital Signs Date Time Temp Pulse Resp B/P (MAP) Pulse Ox O2 Delivery O2 Flow Rate FiO2 07/31/17 08:00 97.9 88 16 107/64 (78) 07/30/17 21:01 98.4 82 18 108/68 (81) 07/30/17 20:31 17 07/30/17 20:30 94 121/65 (83) 07/30/17 20:15 97 120/72 (88) 07/30/17 20:00 103 122/70 (87) 07/30/17 19:46 103 07/30/17 19:30 102 123/67 (85) 07/30/17 19:15 106 125/81 (96) 07/30/17 19:09 17 07/30/17 19:00 100 110/69 (83) 07/30/17 18:46 101 85/47 (60) 07/30/17 18:30 98 120/66 (84) 07/30/17 18:15 97 107/70 (82) 07/30/17 18:07 100 121/70 (87) 07/30/17 18:06 99 115/66 (82) 07/30/17 16:30 121 129/68 (88) 07/30/17 16:00 127 133/94 (107) 07/30/17 15:30 89 105/46 (65) 07/30/17 15:00 94 122/73 (89) 07/30/17 14:30 98 123/66 (85) 07/30/17 14:15 17 07/30/17 14:00 85 116/71 (86) 07/30/17 12:00 18 Objective Remarks GENERAL: Well-nourished, well-developed patient. CARDIOVASCULAR: Regular rate and rhythm without murmurs, gallops, or rubs. RESPIRATORY: Breath sounds equal bilaterally. No accessory muscle use. ABDOMEN/GI: Abdomen soft, non-tender. Fundus: Firm, non-tender at umbilicus. GENITOURINARY: Light to moderate bleeding, rondon to bsd clear urine EXTREMITIES: No cyanosis or edema, non-tender, without signs of DVT. Medications and IVs Current Medications Medications (Trade) Dose Ordered Sig/Katherine Route Start Time Stop Time Status Last Admin (NS Flush) 2 ml BID IV FLUSH 07/30/17 21:00 (NS Flush) 2 ml UNSCH PRN IV FLUSH 07/30/17 19:00 (Tylenol) 650 mg Q4H PRN PO 07/30/17 19:00 07/31/17 09:12 (Motrin) 800 mg Q8H PRN PO 07/30/17 19:00 07/31/17 09:12 (Percocet 5-325 Mg) 1 tab Q4H PRN PO 07/30/17 19:00 (Percocet 5-325 Mg) 2 tab Q4H PRN PO 07/30/17 19:00 (Americaine 20% Top Spr) 1 spray Q4H PRN TOPICAL 07/30/17 19:00 07/30/17 21:04 (Tucks Pads) 1 applic QID PRN TOPICAL 07/30/17 19:00 07/30/17 21:04 (Anupama-Colace) 2 tab Q12H PRN PO 07/30/17 19:00 07/31/17 09:12 (Ambien) 5 mg HS PRN PO 07/30/17 19:00 (Mag-Al Plus Susp Liq) 15 ml Q8H PRN PO 07/30/17 19:00 (Zofran Odt) 4 mg Q6H PRN PO 07/30/17 19:00 Assessment/Plan Problem List: (1) Anemia ICD Codes: D64.9 - Anemia, unspecified (2) hemorrhage, delivered ICD Codes: O72.1 - Other immediate hemorrhage (3) Normal vaginal delivery ICD Codes: O80 - Encounter for full-term uncomplicated delivery Assessment and Plan pt doing well pain raquel managed with oral medication bleeding light to moderate cbc ordered for this am, will consider Jimmy rondon to come out this am pt to ambulate advised to watch for dizziness, sob, chest pain breast feeding and bonding with routine care Discharge Planning consider dc in 1-2- days Kimmei Zuluaga Jul 31, 2017 11:28
[2017-07-31 11:56] LABS: AUTOMATED NEUTROPHIL # 17.5 TH/MM3 (1.8-7.7); BASOPHIL # 0.1 TH/MM3 (0-0.2); BASOPHIL % 0.3 % (0.0-2.0); EOSINOPHIL % 0.1 % (0.0-4.0); HEMATOCRIT 28.2 % (35.0-46.0); HEMOGLOBIN 9.6 GM/DL (11.6-15.3); LYMPH % 9.5 % (9.0-44.0); LYMPHOCYTE # 1.9 TH/MM3 (1.0-4.8); MEAN CELL VOLUME 91.9 FL (80.0-100.0); MEAN CORPUSCULAR HEMOGLOBIN 31.2 PG (27.0-34.0); MEAN CORPUSCULAR HGB CONC 33.9 % (32.0-36.0); MEAN PLATELET VOLUME 8.2 FL (7.0-11.0); MONO % 4.6 % (0.0-8.0); MONOCYTE # 0.9 TH/MM3 (0-0.9); NEUT % 85.5 % (16.0-70.0); PLATELET COUNT 253 TH/MM3 (150-450); RED BLOOD COUNT 3.07 MIL/MM3 (4.00-5.30); RED CELL DISTRIBUTION WIDTH 14.7 % (11.6-17.2); WHITE BLOOD COUNT 20.5 TH/MM3 (4.0-11.0)
[2017-07-31] MEDS ORDERED: IRON SUCROSE INJ 100 MG in SODIUM CHLORIDE 0.9% INJ 100 ML IV ONE (13:00)
[2017-07-31] MEDS ORDERED: IBUP1TAB7 PO (13:08)
[2017-07-31 20:00] VITALS: BP 108/67; PULSE 82; RESP 18; TEMP 97.4; O2SAT 98
[2017-08-01] MEDS: IBUPROFEN 800 MG TAB PO PRN ×2 (05:47→14:01)
--- NOTE | 2017-08-01 09:20 | HHI.DS ---
Admission Date Jul 30, 2017 at 05:36 Discharge Date: Aug 01, 2017 Admitting Diagnosis TERM PREGANCY INDUCTION OF LABOR Diagnosis: (1) hemorrhage, delivered ICD Codes: O72.1 - Other immediate hemorrhage (2) Normal vaginal delivery ICD Codes: O80 - Encounter for full-term uncomplicated delivery (3) Anemia ICD Codes: D64.9 - Anemia, unspecified Delivery Date: Jul 30, 2017 : Female Brief History TERM INDUCTION OF LABOR AMA Hospital Course TERM INDUCTION OF LABOR-AROM AD PITOCIN VACUUM ASSISTED VAGINAL DELIVERY WITH MILD SHOULDER DYSTOCIA POST HEMORRHAGE ROUTINE CARE Pt Condition on Discharge: Good Discharge Disposition: Discharge Home Discharge Instructions Diet Instructions: As Tolerated, No Restrictions Additional Diet Instructions: Drink at least 8 - 16 oz bottles of water a day Activities You Can Perform: Shower Only-No Bath, Sitz Bath Activities to Avoid: Lifting/Bending, Sexual Activity Additional Activity Instruc.: No driving until off pain medications Do not lift anything heavier than your baby in an carrier Follow up Referrals: RAIL CAR UNLOADER - 2 Weeks @ [facility] [place] New Medications: Ibuprofen (Ibuprofen) 800 Mg Tab 800 MG PO Q8H PRN for CRAMPING, #30 TAB Continued Medications: Ferrous Sulfate (Ferrous Sulfate) 325 Mg (65 Mg Iron) Tablet 325 MG PO DAILY for Nutritional Supplement, #30 TAB 0 Refills Pnv No.95/Ferrous Fum/Folic AC ( Vitamins Tablet) 28 Mg Iron-800 Mcg Tablet PO Discontinued Medications: Valacyclovir (Valtrex) 500 Mg Tab 500 MG PO DAILY for Mgmt Viral Infection, #30 TAB 0 Refills Kimmie Zuluaga Aug 01, 2017 09:20
--- NOTE | 2017-08-01 09:23 | HHI.OB ---
Subjective Post Day: 2 Objective Vitals/I&O Vital Signs Date Time Temp Pulse Resp B/P (MAP) Pulse Ox O2 Delivery O2 Flow Rate FiO2 07/31/17 20:00 97.4 82 18 108/67 (81) 98 Objective Remarks GENERAL: Well-nourished, well-developed patient. CARDIOVASCULAR: Regular rate and rhythm without murmurs, gallops, or rubs. RESPIRATORY: Breath sounds equal bilaterally. No accessory muscle use. ABDOMEN/GI: Abdomen soft, non-tender. Fundus: Firm, non-tender at umbilicus. GENITOURINARY: Light to moderate bleeding, EXTREMITIES: No cyanosis or edema, non-tender, without signs of DVT. Medications and IVs Current Medications Medications (Trade) Dose Ordered Sig/Katherine Route Start Time Stop Time Status Last Admin (NS Flush) 2 ml BID IV FLUSH 07/30/17 21:00 (NS Flush) 2 ml UNSCH PRN IV FLUSH 07/30/17 19:00 (Tylenol) 650 mg Q4H PRN PO 07/30/17 19:00 07/31/17 22:55 (Motrin) 800 mg Q8H PRN PO 07/30/17 19:00 08/01/17 05:47 (Percocet 5-325 Mg) 1 tab Q4H PRN PO 07/30/17 19:00 (Percocet 5-325 Mg) 2 tab Q4H PRN PO 07/30/17 19:00 (Americaine 20% Top Spr) 1 spray Q4H PRN TOPICAL 07/30/17 19:00 07/30/17 21:04 (Tucks Pads) 1 applic QID PRN TOPICAL 07/30/17 19:00 07/30/17 21:04 (Anupama-Colace) 2 tab Q12H PRN PO 07/30/17 19:00 07/31/17 22:54 (Ambien) 5 mg HS PRN PO 07/30/17 19:00 (Mag-Al Plus Susp Liq) 15 ml Q8H PRN PO 07/30/17 19:00 (Zofran Odt) 4 mg Q6H PRN PO 07/30/17 19:00 Assessment/Plan Problem List: (1) Anemia ICD Codes: D64.9 - Anemia, unspecified (2) hemorrhage, delivered ICD Codes: O72.1 - Other immediate hemorrhage (3) Normal vaginal delivery ICD Codes: O80 - Encounter for full-term uncomplicated delivery Assessment and Plan pt doing well pain raquel managed with oral medication Venofer given pt to ambulates without problems breast feeding and bonding with routine care Discharge Planning dc home today Kimmie Zuluaga Aug 01, 2017 09:23
[2017-08-01] MEDS: DOCUSATE SODIUM 50 MG/SENNA 8.6 MG TAB PO PRN (14:00)
== END 2017-08-01 16:01 | disposition home or self-care (01) | DRG 767 ==
LOC: H2EB 05:36 → H1EA 20:43
PROVIDERS: ADMIT Obstetrics & Gynecology; ATTEND Obstetrics & Gynecology
PROC: 10D07Z6 Extraction of Products of Conception, Vacuum, Via Natural or Artificial Opening (ICD-10-PCS; principal; 2017-07-30)
PROC: 10D17Z9 Manual Extraction of Products of Conception, Retained, Via Natural or Artificial Opening (ICD-10-PCS; 2017-07-30)
PROC: 0KQM0ZZ Repair Perineum Muscle, Open Approach (ICD-10-PCS; 2017-07-30)
PROC: 0W8NXZZ Division of Female Perineum, External Approach (ICD-10-PCS; 2017-07-30)
PROC: 10907ZC Drainage of Amniotic Fluid, Therapeutic from Products of Conception, Via Natural or Artificial Opening (ICD-10-PCS; 2017-07-30)
PROC: 3E033VJ Introduction of Other Hormone into Peripheral Vein, Percutaneous Approach (ICD-10-PCS; 2017-07-30)
DX: O66.0 Obstructed labor due to shoulder dystocia (principal); O72.1 Other immediate postpartum hemorrhage; Z37.0 Single live birth; Z3A.39 39 weeks gestation of pregnancy; D64.9 Anemia, unspecified; O99.02 Anemia complicating childbirth
CPT/HCPCS: 59025; 80307; 81001; 85025; 86900; 86901; 87086; J1756; J2175; J2540; J2590; J7120

== ENCOUNTER 2017-08-10 09:36 | Emergency (ER) | payer MEDICAID ==
[~2017-08-10] VITALS: Ht 165.1 cm; Wt 88.5 kg
[~2017-08-10 09:36] MED LIST changes: -CEPH-460 PO; +FERR325T18 PO; +IBUP1TAB7 PO; +PRENTAB7 PO; -RANI1TAB5 PO; -ZOFR4TAB3 SL
[2017-08-10 09:54] VITALS: BP 100/58; PULSE 126; RESP 14; TEMP 100.1; O2SAT 98
[2017-08-10 10:39] VITALS: BP 133/58; PULSE 109; RESP 17; TEMP 99.3; O2SAT 96
--- NOTE | 2017-08-10 10:42 | PD ---
HPI Chief Complaint: Fever Time Seen by Provider: 10:32 Travel History International Travel<30 days: No Contact w/Intl Traveler<30days: No Traveled to known affect area: No History of Present Illness HPI Patient states 2 days worth of low-grade fever, lower abdominal pain, 6 out of 10, intermittent in intensity, described as crampy to pressure-like. Patient denies any nausea vomiting or diarrhea currently but states that she does still have some vaginal spotting.. Patient denies any alleviating or aggravating factors. Patient denies any associated factors such as rash, headache, chest pain, back pain, no vaginal discharge No known drug allergy Denies any past medical history, denies any past surgical history Recent vaginal delivery on July 30 PFS Past Medical History Hx Anticoagulant Therapy: No Cancer: No Cardiovascular Problems: No Chemotherapy: No Cerebrovascular Accident: No Diabetes: No Diminished Hearing: No Endocrine: Yes Genitourinary: No Immune Disorder: No Musculoskeletal: No Neurologic: Yes Psychiatric: No Reproductive: No Respiratory: No Migraines: Yes Thyroid Disease: Yes ?: Not : 2 Para: 1 Past Surgical History Hysterectomy: No Family History Family Hypercholesterolemia: Yes Social History Alcohol Use: No Tobacco Use: No Substance Use: No Allergies-Medications (Allergen,Severity, Reaction): Coded Allergies: No Known Allergies (Unverified Allergy, Unknown, 07/19/17) Reported Meds & Prescriptions Reported Meds & Active Scripts Active Ibuprofen 800 Mg Tab 800 Mg PO Q8H PRN Reported Vitamins Tablet (Pnv No.95/Ferrous Fum/Folic AC) 28 Mg Iron-800 Mcg Tablet PO Review of Systems General / Constitutional: Positive: Fever Eyes: No: Visual changes HENT: No: Headaches Cardiovascular: No: Chest Pain or Discomfort Respiratory: No: Shortness of Breath Gastrointestinal: Positive: Abdominal Pain Genitourinary: No: Dysuria Musculoskeletal: No: Pain Skin: No Rash Neurologic: No: Weakness Psychiatric: No: Depression Endocrine: No: Polydipsia Hematologic/Lymphatic: No: Easy Bruising Physical Exam Narrative GENERAL: SKIN: Warm and dry. HEAD: Atraumatic. Normocephalic. EYES: Pupils equal and round. No scleral icterus. No injection or drainage. ENT: No nasal bleeding or discharge. Mucous membranes pink and moist. NECK: Trachea midline. No JVD. CARDIOVASCULAR: Regular rate and rhythm. RESPIRATORY: No accessory muscle use. Clear to auscultation. Breath sounds equal bilaterally. GASTROINTESTINAL: Abdomen soft, non-tender, nondistended. MUSCULOSKELETAL: Extremities without clubbing, cyanosis, or edema. No obvious deformities. NEUROLOGICAL: Awake and alert. No obvious cranial nerve deficits. Motor grossly within normal limits. Five out of 5 muscle strength in the arms and legs. Normal speech. PSYCHIATRIC: Appropriate mood and affect; insight and judgment normal. Data Data Last Documented VS Vital Signs Date Time Temp Pulse Resp B/P (MAP) Pulse Ox O2 Delivery O2 Flow Rate FiO2 08/10/17 10:39 99.3 109 17 133/58 (83) 96 Orders Orders Complete Blood Count With Diff (08/10/17 10:04) Comprehensive Metabolic Panel (08/10/17 10:04) Urinalysis - C+S If Indicated (08/10/17 10:04) Lactic Acid (08/10/17 10:45) Ct Abd/Pel W/O Iv Contrast (08/10/17 10:45) Iv Access Insert/Monitor (08/10/17 10:45) Ecg Monitoring (08/10/17 10:45) Oximetry (08/10/17 10:45) NPO (08/10/17 10:45) Sodium Chlor 0.9% 1000 Ml Inj (Ns 1000 M (08/10/17 10:45) Sodium Chloride 0.9% Flush (Ns Flush) (08/10/17 10:45) Blood Culture (08/10/17 10:45) Urine Culture (08/10/17 10:17) Us Pelvis Comp Ticket Speculator/Non-Preg (08/10/17 12:18) Metronidazole 500 Mg Inj (Flagyl 500 Mg (08/10/17 12:30) Ceftriaxone Inj (Rocephin Inj) (08/10/17 12:30) Sodium Chloride 0.9% Flush (Ns Flush) (08/10/17 12:30) Lipase (08/10/17 10:15) Ed Discharge Order (08/10/17 15:49) Labs Laboratory Tests Test 08/10/17 10:15 08/10/17 10:17 08/10/17 11:00 White Blood Count 19.3 TH/MM3 Red Blood Count 3.59 MIL/MM3 Hemoglobin 11.1 GM/DL Hematocrit 33.1 % Mean Corpuscular Volume 92.1 FL Mean Corpuscular Hemoglobin 31.0 PG Mean Corpuscular Hemoglobin Concent 33.7 % Red Cell Distribution Width 14.0 % Platelet Count 315 TH/MM3 Mean Platelet Volume 6.8 FL CBC Comment AUTO DIFF Differential Total Cells Counted 100 Neutrophils % (Manual) 85 % Band Neutrophils % 7 % Lymphocytes % 3 % Monocytes % 2 % Eosinophils % 1 % Basophils % 2 % Neutrophils # (Manual) 17.8 TH/MM3 Differential Comment FINAL DIFF MANUAL Platelet Estimate NORMAL Platelet Morphology Comment NORMAL Red Cell Morphology Comment NORMAL Blood Urea Nitrogen 13 MG/DL Creatinine 0.85 MG/DL Random Glucose 104 MG/DL Total Protein 7.1 GM/DL Albumin 3.3 GM/DL Calcium Level 8.1 MG/DL Alkaline Phosphatase 96 U/L Aspartate Amino Transf (AST/SGOT) 22 U/L Alanine Aminotransferase (ALT/SGPT) 25 U/L Total Bilirubin 0.4 MG/DL Sodium Level 137 MEQ/L Potassium Level 3.5 MEQ/L Chloride Level 105 MEQ/L Carbon Dioxide Level 22.1 MEQ/L Anion Gap 10 MEQ/L Estimat Glomerular Filtration Rate 73 ML/MIN Lipase 257 U/L Urine Color YELLOW Urine Turbidity CLEAR Urine pH 7.5 Urine Specific [place] 1.017 Urine Protein TRACE mg/dL Urine Glucose (UA) NEG mg/dL Urine Ketones NEG mg/dL Urine Occult Blood MOD Urine Nitrite NEG Urine Bilirubin NEG Urine Urobilinogen LESS THAN 2.0 MG/DL Urine Leukocyte Esterase LARGE Urine RBC 6 /hpf Urine WBC 27 /hpf Urine Squamous Epithelial Cells <1 /hpf Urine Bacteria FEW /hpf Urine Mucus FEW /lpf Microscopic Urinalysis Comment CULTURE INDICATED Lactic Acid Level 1.2 mmol/L [facility] Medical Decision Making Medical Screen Exam Complete: Yes Emergency Medical Condition: Yes Medical Record Reviewed: Yes Differential Diagnosis Colitis versus diverticulitis versus appendicitis versus cystitis versus endometritis Narrative Course CBC shows a leukocytosis of 19,000 with a left shift of 85% and 7 bandemia. No anemia, and normal platelet count Complete metabolic profile shows normal electrolytes, normal liver\kidney\ pancreas function... Normal lactic acid, normal glucose, UA consistent with a UTI CT abdomen read by radiology as appearance of the uterus, no evidence of abnormal fluid collections or inflammatory changes. Pelvic ultrasound read by radiology as enlarged uterus consistent with state. Nonspecific mildly heterogeneous fluid with multiple echogenic foci in the endometrial stripe. Left ovary not visualized, right ovary within normal limits. After thorough evaluation the patient's symptoms are most likely secondary to a urinary tract infection, no gross evidence of sepsis, however it may be suggestive of a sending cystitis. Thus far no imaging study showing any evidence of endometritis nor of colitis/diverticulitis/or appendicitis. Patient had been given Rocephin and Flagyl in the emergency department via IV. Patient is currently nontoxic and tolerated p.o., and was able to ambulate on her own without any assistance nor any pain experienced ... Plan to discharge along with details and results were all shared with patient and she agreed with disposition. Patient was also advised to withhold breast-feeding over the next week i.e. 7 days due to the choice of antibiotics that she will be on. Diagnosis Primary Impression: Ascending cystitis Patient Instructions: General Instructions, Urinary Tract Infection in Women ( [place]) Scripts Tramadol (Ultram) 50 Mg Tab 50 MG PO Q8H Y for PAIN for 3 Days, #9 TAB 0 Refills Prov: Samy Ferraro MD 08/10/17 Ciprofloxacin (Cipro) 500 Mg Tab 500 MG PO BID for Infection for 5 Days, #10 TAB 0 Refills Prov: Samy Ferraro MD 08/10/17 Disposition: 01 DISCHARGE HOME Condition: Stable Samy Ferraro MD Aug 10, 2017 10:42
[2017-08-10] MEDS ORDERED: SODIUM CHLORIDE 0.9% FLUSH 10 ML FLUSH IV FLUSH PRN ×2 (10:45→12:30)
[2017-08-10] MEDS ORDERED: SODIUM CHLOR 0.9% 1000 ML INJ 1,000 ML IV SCH (10:45)
[2017-08-10 10:55] LABS: HEMATOCRIT 33.1 % (35.0-46.0); HEMOGLOBIN 11.1 GM/DL (11.6-15.3); MEAN CELL VOLUME 92.1 FL (80.0-100.0); MEAN CORPUSCULAR HGB CONC 33.7 % (32.0-36.0); MEAN PLATELET VOLUME 6.8 FL (7.0-11.0); PLATELET COUNT 315 TH/MM3 (150-450); RED BLOOD COUNT 3.59 MIL/MM3 (4.00-5.30); WHITE BLOOD COUNT 19.3 TH/MM3 (4.0-11.0)
[2017-08-10 10:58] LABS: ALBUMIN 3.3 GM/DL (3.4-5.0); AST (GOT) 22 U/L (15-37); BICARBONATE 22.1 MEQ/L (21.0-32.0); BLOOD UREA NITROGEN 13 MG/DL (7-18); CALCIUM 8.1 MG/DL (8.5-10.1); CHLORIDE 105 MEQ/L (98-107); CREATININE 0.85 MG/DL (0.50-1.00); GLOMERULAR FILTRATION RATE 73 ML/MIN (>89); GLUCOSE,RANDOM 104 MG/DL (74-106); SODIUM (NA) 137 MEQ/L (136-145)
[2017-08-10 11:03] LABS: ALKALINE PHOSPHATASE 96 U/L (45-117); ALT (GPT) 25 U/L (10-53); TOTAL BILIRUBIN ADULT 0.4 MG/DL (0.2-1.0); TOTAL PROTEIN 7.1 GM/DL (6.4-8.2)
[2017-08-10 11:39] LABS: BACTERIA, URINE FEW /hpf; BILIRUBIN, URINE NEG (NEG); BLOOD, URINE MOD (NEG); GLUCOSE,URINE NEG (NEG); KETONE, URINE NEG (NEG); MUCUS URINE FEW /lpf (OCC); NITRITE,URINE NEG (NEG); PH, URINE 7.5 (5.0-8.5); SQUAMOUS EPITHELIAL CELL URINE <1 /hpf (0-5); URINE COLOR YELLOW (YELLW/STRAW); URINE LEUKOCYTE ESTERASE LARGE (NEG)
[2017-08-10 11:42] LABS: BANDS 7 % (0-6); BASOPHILS 2 % (0-2); LYMPHOCYTES 3 % (9-44); MONOCYTES 2 % (0-8); NEUTROPHIL # MANUAL DIFF 17.8 TH/MM3 (1.8-7.7); POLYS (SEG NEUTROPHILS) 85 % (16-70)
--- NOTE | 2017-08-10 12:00 | RADRPT ---
EXAM DATE/TIME: 08/10/2017 11:21 [facility] COMPARISON: No previous studies available for comparison. INDICATIONS : Lower abdominal cramping, fever. Patient recently gave . ORAL CONTRAST: No oral contrast ingested. RADIATION DOSE: 10.84 CTDIvol (mGy) MEDICAL HISTORY : None SURGICAL HISTORY : None. ENCOUNTER: Initial ACUITY: 2 days PAIN SCALE: 4/10 LOCATION: Bilateral lower quadrant TECHNIQUE: Volumetric scanning of the abdomen and pelvis was performed. Using automated exposure control and ad justment of the mA and/or kV according to patient size, radiation dose was kept as low as reasonably achievable to obtain optimal diagnostic quality images. DICOM format image data is available electro nically for review and comparison. FINDINGS: LOWER LUNGS: The visualized lower lungs are clear. LIVER: Homogeneous density without lesion. There is no dilation of the biliary tree. No calcified gallston es. SPLEEN: Normal size without lesion. PANCREAS: Within normal limits. KIDNEYS: Normal in size and shape. There is no mass, stone, or hydronephrosis. ADRENAL GLANDS: Within normal limits. VASCULAR: There is no aortic aneurysm. BOWEL/MESENTERY: The stomach, small bowel, and colon demonstrate no acute abnormality. There is no free intraperitone al air or fluid. ABDOMINAL WALL: Within normal limits. RETROPERITONEUM: There is no lymphadenopathy. BLADDER: No wall thickening or mass. REPRODUCTIVE: The uterus is enlarged and has a characteristic post appearance. There is no evidence of adnex al or central pelvic fluid collections or inflammatory changes. INGUINAL: There is no lymphadenopathy or hernia. MUSCULOSKELETAL: Within normal limits for patient age. CONCLUSION: 1. Post appearance of the uterus 2. No evidence of abnormal fluid collections or inflammatory changes. Mat Ridley MD on August 10, 2017 at 11:54 Board Certified Radiologist. This report was verified electronically.
[2017-08-10] MEDS ORDERED: cefTRIAXone INJ 1,000 MG in SODIUM CHLORIDE 0.9% INJ 100 ML IV ONE (12:30)
[2017-08-10] MEDS ORDERED: metroNIDAZOLE 500 MG INJ 100 ML IV ONE (12:30)
--- NOTE | 2017-08-10 14:27 | RADRPT ---
EXAM DATE/TIME: 08/10/2017 13:27 [facility] COMPARISON: No previous studies available for comparison. INDICATIONS : Increased cramping. Recently gave 07/30/17. MEDICAL HISTORY : Recently gave 07/30/17. SURGICAL HISTORY : None. ENCOUNTER: Initial ACUITY: 1 day PAIN SCORE: 6/10 LOCATION: Bilateral pelvis MEASUREMENTS: UTERUS: 17.0 x 5.2 x 8.0 cm ENDOMETRIAL STRIPE: 16 mm RIGHT OVARY: 3.6 x 3.0 x 2.6 cm LEFT OVARY: Non visualized FINDINGS: UTERUS: Enlarged uterus consistent with the state. Endometrial stripe thickness is 16 mm. Mildly h eterogeneous fluid is seen within the endometrial stripe. Multiple small echogenic foci in the endome trial stripe. No color Doppler flow seen within the endometrial stripe. The RIGHT OVARY: Within normal limits. LEFT OVARY: Left ovaries not visualized. MISCELLANEOUS: No free fluid. CONCLUSION: 1. Enlarged uterus consistent with state. Nonspecific mildly heterogeneous fluid with mult iple echogenic foci in the endometrial stripe. 2. Left ovary not visualized. Right ovary within normal limits. Sherman Joy MD on August 10, 2017 at 14:23 Board Certified Radiologist. This report was verified electronically.
[2017-08-10] MEDS ORDERED: TRAM50 PO (16:18)
[2017-08-10] MEDS ORDERED: CIPR-9 PO (16:18)
== END 2017-08-10 16:43 | disposition home or self-care (01) ==
LOC: NEPC 09:36
DX: N30.90 Cystitis, unspecified without hematuria (principal); D72.829 Elevated white blood cell count, unspecified; N85.2 Hypertrophy of uterus; E07.9 Disorder of thyroid, unspecified
CPT/HCPCS: 74176; 76856; 80053; 81001; 83605; 83690; 85007; 85027; 87040; 87086; 96361; 96365; 96368; 99285; J0696; J7030

== ENCOUNTER → 2017-09-18 | Day surgery (SDC) | payer MEDICAID ==
[~2017-09-18] VITALS: Ht 165.1 cm; Wt 85.5 kg
[~2017-09-18] MED LIST changes: +*morphine SULFATE 4 MG/ML PERIprocedure ONLY ONE; +ACETAMINOPHEN 1000 MG/100 ML 100 ML IV ONE; +APREPITANT 40 MG CAP ONE; +CHLORHEXIDINE GLUCONATE 2 % 1 PACK (2 CLOTHS) TOPICAL PRN; +DEXAMETHASONE SOD PHOS 4 MG/ML VIAL IV ONE; +DO NOT ADM ANY ANTICOAGULANT DRUGS PRN; -FERR325T18 PO; +GLYCOPYRROLATE 1 MG/5 ML SYRINGE IV PUSH ONE; -IBUP1TAB7 PO; +INSULIN HUMAN REGULAR 1,000 UNITS/10 ML VIAL SQ PRN; +LACTATED RINGER'S 1000 ML IV PRN; +LIDOCAINE HCL 1% PF 5 ML SYRINGE OTHER ONE; +METOPROLOL TARTRATE 25 MG TAB PO PRN; +MIDAZOLAM HCL 2 MG/2 ML VIAL ONE; +NEOSTIGMINE 5 MG/5 ML SYRINGE IV PUSH ONE; +ONDANSETRON HCL 4 MG/2 ML VIAL IV ONE; +ONDANSETRON HCL 4 MG/2 ML VIAL IV PUSH PRN; +POVIDONE IODINE 5% (ANTISEPSIS KIT) 4 APPLICATIONS EACH NARE PRN; -PRENTAB7 PO; +PROPOFOL 200 MG/20 ML AMP IV ONE; +ROCURONIUM INJ 50 MG/5 ML SYRINGE IV PUSH ONE; +SODIUM CHLORID 0.9% 500 ML IV PRN; +oxyCODONE/ACETAMINOPHEN 5 MG/325 MG TAB PO PRN
[2017-09-18 12:19] LABS: AUTOMATED NEUTROPHIL # 5.5 TH/MM3 (1.8-7.7); BASOPHIL % 0.5 % (0.0-2.0); EOSINOPHIL # 0.1 TH/MM3 (0-0.4); EOSINOPHIL % 0.8 % (0.0-4.0); HEMATOCRIT 36.4 % (35.0-46.0); HEMOGLOBIN 12.2 GM/DL (11.6-15.3); LYMPH % 22.7 % (9.0-44.0); LYMPHOCYTE # 1.8 TH/MM3 (1.0-4.8); MEAN CELL VOLUME 87.9 FL (80.0-100.0); MEAN CORPUSCULAR HEMOGLOBIN 29.4 PG (27.0-34.0); MEAN CORPUSCULAR HGB CONC 33.5 % (32.0-36.0); MEAN PLATELET VOLUME 7.2 FL (7.0-11.0); MONO % 6.4 % (0.0-8.0); MONOCYTE # 0.5 TH/MM3 (0-0.9); NEUT % 69.6 % (16.0-70.0); PLATELET COUNT 264 TH/MM3 (150-450); RED BLOOD COUNT 4.15 MIL/MM3 (4.00-5.30); RED CELL DISTRIBUTION WIDTH 14.4 % (11.6-17.2)
--- NOTE | 2017-09-18 15:01 | MP ---
cc: Homero Sommers MD DATE OF OPERATION: 09/18/2017 PREOPERATIVE DIAGNOSIS: Desires permanent sterilization. POSTOPERATIVE DIAGNOSIS: Desires permanent sterilization. PROCEDURE PERFORMED: Laparoscopic bilateral salpingectomy. ANESTHESIA: General endotracheal intubation. SURGEON: Homero Sommers MD FINDINGS: Examination under anesthesia, the vagina was clean. The cervix was parous without lesions. The uterus was normal size, shape and consistency and irregular anteriorly. The adnexa were negative for masses. Laparoscopic exam revealed a normal uterus with a fibroid on the anterior fundal portion, 3 x 3 cm, somewhat pedunculated. There is also a 2 x 2 cm fibroid in the right broad ligament as well. The fallopian tubes were normal in length and caliber. The ovaries were normal in size and shape. The posterior and anterior cul-de-sac were clean without any lesions. The appendix was normal. The upper abdomen and liver were normal. COMPLICATIONS: None. COUNTS: The counts were correct. ESTIMATED BLOOD LOSS: Minimal. CONDITION: The patient tolerated the procedure well, went to the recovery room in good condition. PROCEDURE: The patient was taken to the operating room and identified by name band and verbally, given a general anesthetic, prepped and draped in the usual sterile manner in dorsal lithotomy for a laparoscopic vaginal surgery. A timeout was taken and a weighted speculum was placed in the vagina. The anterior lip of the cervix was grasped with a single-tooth tenaculum. Cervix was serially dilated without difficulty and the [place] clamp placed. Attention was turned to the umbilical area. A small subumbilical incision was made and with a 5 mm trocar the abdomen was entered and the pneumoperitoneum was created with 3 liters of CO2. Inferolateral to the umbilicus bilaterally we made 2 more 5 mm ports and inspected the entire pelvis and abdomen with the above findings. Once this had been accomplished, the left fallopian tube was grasped at the fimbriated end and along the mesosalpinx. We took the entire fallopian tube down to the uterine junction. The fallopian tube was then removed through the 5 mm port. This was repeated on the contralateral side without difficulty. All surgical sites were hemostatic. Pictures were taken and the laparoscope was removed under direct vision. The air was released through the second puncture and the skin was repaired with a 4-0 Monocryl in a subcuticular fashion. The patient tolerated the procedure well and went to the recovery room in good condition. R. Tien Sommers MD RJV/TL , 02:38 PM , 03:00 PM
[2017-09-18 16:10] VITALS: BP 114/69; PULSE 53; RESP 16; TEMP 97.7; O2SAT 99
== END | disposition home or self-care (01) ==
LOC: HSDC 10:51
PROVIDERS: ATTEND Obstetrics & Gynecology
DX: Z30.2 Encounter for sterilization (principal); Z01.812 Encounter for preprocedural laboratory examination
CPT/HCPCS: 00840; 58661; 84702; 85025; 88302; J0131; J1100; J2250; J2270; J2405; J2710; J3010; J7120; J8501